=== PATIENT | male | born 1975 | race Caucasian/White ===

== ENCOUNTER 2025-05-18 16:13 | Emergency (ER) | payer BC, SELFPAY ==
--- NOTE | ~2025-05-18 | XR_ITS ---
CLINICAL HISTORY: productive cough 2 view chest x-ray. Comparison: None Findings: Normal lung volumes. Lungs are clear. No pneumothorax or pleural effusion. Heart size normal. No passive venous congestion. No midline shift or tracheal deviation. No acute fracture. Impression: 1. No acute cardiopulmonary disease. This document has been electronically signed by: Amari Felder MD on 05/18/2025 17:26:18
[2025-05-18 16:45] VITALS: BP 149/82; PULSE 85; RESP 18; TEMP 36.9; O2SAT 98; BMI 33.4
--- NOTE | 2025-05-18 16:45 | ED.GENADULT ---
HPI - General Adult General Chief complaint: Weakness Stated complaint: flu like symptoms weakness Time Seen by Provider: 05/18/25 21:07 Source: patient and sign language interpreter Mode of arrival: ambulatory Limitations: language barrier History of Present Illness ED Provider: Dr. Lulu Ornelas HPI narrative: 50 year old male with history of untreated HTN presenting with generlized malaise, fatigue, chills, nonproductive cough, body aches ongoing for the last 2 weeks. States that he feels like he has had the flu. Was never around anyone that has been sick and has never tested positive for influenza though. Denies associated chest pain, abdominal pain, nausea, vomiting, diarrhea, lower extremity edema or pain. Blood pressure is extremely elevated in the emergency department. Patient does not take blood pressure medications daily. Was told at 1 point that he had high blood pressure however, he did not realize he needed to take blood pressure medication every day. Related Data Allergies Allergy/AdvReac Type Severity Reaction Status Date / Time No Known Allergies Allergy Verified 05/18/25 16:47 Review of Systems Review of Systems: As per HPI, full review of systems performed and negative but for the above mentioned pertinent positives and negatives. [facility] Social History Social History Advance Directives: No Advance Directives Information Provided: No Physical Exam ED Exam Exam: GENERAL: Well-Appearing, conversant, no acute distress. SKIN: Normal skin color for ethnicity, warm, dry, no rashes noted. HEENT: Normocephalic, atraumatic, no stridor, posterior oropharynx nonerythematous, dentition intact, EOMI. NECK: Soft, supple, full ROM, midline structures nontender, no step-offs, no deformities, no lymphadenopathy. CHEST: Heart regular rate and rhythm, no murmurs, symmetric chest rise and fall. PULMONARY: Clear to auscultation bilaterally, no labored breathing, no wheezes/rhales/rhonchi. ABDOMINAL: Soft, nondistended, nontender, positive bowel sounds in all quadrants. : Deferred. MUSCULOSKELETAL: Normal tone, full range of motion, no deformities, no peripheral edema. NEURO: Alert and oriented x3, CN II through XII intact, equal strength and sensation bilateral upper and lower extremities, no focal neurologic deficits. PSYCHIATRIC: Normal affect, fluid speech, good eye contact and appropriate demeanor. Vital Signs: Vital Signs - 24 hr 05/18/25 16:45 05/18/25 21:47 05/19/25 01:21 Temperature 98.5 F 98.3 F 98.3 F Pulse Rate 85 68 63 Respiratory Rate 18 Blood Pressure 149/82 H 184/101 H 151/93 H Pulse Oximetry 98 97 98 Oxygen Delivery Method Room Air Room Air Room Air BMI result Body Mass Index 33.4 Course Course Course Narrative: This is a Rapid Medical Examination (RME) performed by Dionicio Patel PA-C in triage. Full HPI, ROS, assessment and treatment plan per primary provider in the Main ED. Hx: 50 yo M here for eval of fatigue, myalgias, chills, productive cough x2 weeks. no N/V. 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 Plan: viral swabs, cxr Medications Administered Discontinued Medications Generic Name Dose Route Start Last Admin Trade Name Freq PRN Reason Stop Dose Admin Nifedipine 30 mg 05/18/25 21:48 05/18/25 23:00 Nifedipine Er 30 Mg Tab.Er.24 PO 05/18/25 21:49 30 mg ONCE ONE Administration Protocol Medical Decision Making Medical Decision Making MDM Narrative: Patient presents today with flu-like symptoms. Differential diagnosis includes influenza, coronavirus, pneumonia, upper respiratory infection, among others. Most importantly, this patient is not in any acute respiratory distress. They have normal oxygen levels at room air. Of note, patient is extremely hypertensive with blood pressures around 180/110. He is supposed to be taking blood pressure medication but did not realize that he should be taking it every day. Patient is staying in [place] but is from [facility] and has not seen a primary care doctor in quite some time. He is supposed to be on blood pressure medication but does not know which 1. Workup thus far has been unremarkable. Slight dehydration however, patient is tolerating oral intake and has had no vomiting in 2 weeks. I am going to add on an EKG, cardiac enzyme and BNP to evaluate for end-organ damage for this elevated blood pressure. He has no chest pain at this time. I have discussed medication and other home therapies that will help the patient and have discussed strict return precautions. Instructed that symptoms may worsen and the patient might need re-evaluation or even hospitalization in the future, but did not show signs of this at the time of discharge. Differential Diagnosis Differential Diagnoses: The differential diagnosis associated with the presentation includes (As above) Admission/Observation Consideration of admission/observation: Escalation of care including admission/observation considered Lab Data MDM Lab Attestation statement: I reviewed the patient's lab results. 05/18/25 17:27 05/18/25 17:27 Labs: Lab Results 05/18/25 05/18/25 Range/Units 17:27 22:14 WBC 7.0 (4.8-10.8) X10*3/uL RBC 4.45 L (4.60-5.80) X10*6/uL Hgb 13.4 L (14.0-18.0) g/dl Hct 38.1 L (42.0-52.0) % MCV 85.6 (80.0-98.0) fL MCH 30.1 (27.0-33.0) pg MCHC 35.2 (31.0-36.0) g/dl RDW 12.5 (11.0-16.0) % Plt Count 188 (160-400) X10*3/uL MPV 10.9 (9.4-12.4) fL Immature Gran % (Auto) 0.3 (0.0-0.4) % Neut % (Auto) 56.5 (45-73) % Lymph % (Auto) 32.1 (20-40) % [place] % (Auto) 4.6 (2-11) % Eos % (Auto) 5.8 H (0-4) % Baso % (Auto) 0.7 (0-2) % Lymph # (Auto) 2.2 (1.2-4.9) X10*3/uL [place] # (Auto) 0.3 (0.1-1.2) X10*3/uL Eos # (Auto) 0.4 (0.0-0.4) X10*3/uL Baso # (Auto) 0.1 (0.0-0.2) X10*3/uL Abs Immat Gran (auto) 0.02 (0.00-0.03) X10*3/uL Absolute Neuts (auto) 3.9 (2.0-8.3) x10*3/uL Absolute Nucleated RBC 0.000 (0.0-0.012) X10*3/uL Nucleated RBC % (auto) 0.0 (0.0-0.2) /100WBC Sodium 142 (135-145) mmol/L Potassium 4.1 (3.3-5.1) mmol/L Chloride 108 (96-108) mmol/L Carbon Dioxide 27 (22-29) mmol/L Anion Gap 11 L (12-20) BUN 20 H (9-16) mg/dL Creatinine 0.89 (0.5-1.4) mg/dL Estim Creat Clear Calc 93.0 Estimated GFR > 60 Random Glucose 103 (60-115) mg/dL Calcium 8.5 (8.4-10.2) mg/dL Magnesium 2.1 (1.6-2.6) mg/dL Total Bilirubin 0.3 (0.0-1.0) mg/dL AST 19 (5-37) U/L ALT 16 (0-40) U/L Alkaline Phosphatase 77 (39-117) U/L Total Creatine Kinase 112 (38-174) U/L Troponin I High Sens < 2.7 (<3.5-35.0) ng/L B-Natriuretic Peptide 19 (<100) pg/mL Total Protein 6.8 (6.5-8.0) g/dL Albumin 4.0 (3.5-5.0) g/dL COVID-19 (TRINO) Negative (Negative) COVID-19 Clin Com See Note Influenza Type A (SHENA) Negative (Negative) Influenza Type B (SHENA) Negative (Negative) Influenza A & B Note See Note Independent Interpretation I performed an independent interpretation of an: EKG and Plain X-Ray Interpretation: My independent interpretation of the chest x-ray reveals no consolidations, pulmonary edema, pleural effusion, pneumothorax, obvious bony abnormalities. Radiology Impression Discussion of test interpretation with radiology: I have reviewed the radiologist's reading. Chronic Conditions Patient?s care impacted by: Hypertension Discharge Plan Discharge Clinical Impression: Acute viral syndrome, Poorly-controlled hypertension Patient Disposition: Home, Self-Care Instructions: Hypertension (ED), Viral Syndrome (ED) Additional Instructions: Take your blood pressure medications as prescribed by your primary care doctor when you get home. Take these every day and not stopped taking them unless your blood pressure is low (less than 120/80). Return to the emergency room with any new or worsening symptoms including: Chest pain, difficulty breathing, abdominal pain, vomiting, inability to tolerate food or drink, any new symptom that concerns you. Try to drink plenty of fluids over the next several days. Use Tylenol or Motrin for fever. [place] fabiola medicamentos para la presi?n arterial seg?n lo prescrito por coffey m?dico de cabecera cuando llegue a casa. T?melos todos los d?as y no deje de tomarlos a menos que coffey presi?n arterial sea baja (menos de 120/80). Vuelva a la kiki de urgencias si presenta alg?n s?ntoma nuevo o si los s?ntomas empeoran, incluyendo: dolor en el pecho, dificultad para respirar, dolor abdominal, v?mitos, intolerancia a alimentos o bebidas, cualquier s?ntoma nuevo que le preocupe. Intente beber mucho l?quido aleyda los pr?ximos d?as. [place] Tylenol o Motrin para la fiebre. Print Language: [place]
[2025-05-18 17:32] LABS: MANUAL DIFF FLAG NO
[2025-05-18 17:33] LABS: Hematocrit 38.1 % (42.0-52.0); Hemoglobin 13.4 g/dl (14.0-18.0); Imm Gran Abs Auto 0.02 X10*3/uL (0.00-0.03); Imm Gran Pct Auto 0.3 % (0.0-0.4); Lymphocytes Absolute Auto 2.2 X10*3/uL (1.2-4.9); Mean Corpuscular HGB Conc 35.2 g/dl (31.0-36.0); Mean Corpuscular Hemoglobin 30.1 pg (27.0-33.0); Mean Corpuscular Volume 85.6 fL (80.0-98.0); NRBC Abs Auto 0.000 X10*3/uL (0.0-0.012); NRBC Pct Auto 0.0 /100WBC (0.0-0.2); Platelet Count 188 X10*3/uL (160-400); Red Blood Count 4.45 X10*6/uL (4.60-5.80); White Blood Count 7.0 X10*3/uL (4.8-10.8)
[2025-05-18 17:49] LABS: COVID-19 Test Negative (Negative); IDNOW Serial# 58CA691E
[2025-05-18 17:50] LABS: Alanine Aminotransferase 16 U/L (0-40); Albumin Level 4.0 g/dL (3.5-5.0); Alkaline Phosphatase 77 U/L (39-117); Anion Gap 11 (12-20); Aspartate Amino Transferase 19 U/L (5-37); Blood Urea Nitrogen 20 mg/dL (9-16); Calcium 8.5 mg/dL (8.4-10.2); Carbon Dioxide 27 mmol/L (22-29); Chloride 108 mmol/L (96-108); Creatinine Clr Calc Pharmacy 93.0; Estimated Glomerular Filt Rate > 60; IDNOW Serial# 55D5AD1C; Influenza B2 Negative (Negative); Magnesium 2.1 mg/dL (1.6-2.6); Potassium 4.1 mmol/L (3.3-5.1); Sodium 142 mmol/L (135-145); Total Protein 6.8 g/dL (6.5-8.0)
--- OUTSIDE RECORDS SUMMARY | 2025-05-18 19:52 | XMS_ITS ---
Author Name [facility] Organization Unknown Results Test Name/Text Value Interpretation Date Range Source SARS-CoV-2 RNA Resp Ql TRINO+non-probe No RNA Detected 5 [facility] Glucose SerPl-mCnc 109.0 mg/dL Above high normal 04/18 5 71 - 99 [facility] Calcium SerPl-mCnc 8.9 mg/dL 5 8.4 - 10.5 [facility] Bilirub SerPl-mCnc 0.6 mg/dL 5 0 - 1.2 [facility] BUN/Creat SerPl 31.0 5 [facility] Anion Gap SerPl-sCnc 11.0 mmol/L 02 5 7 - 16 [facility] Prot SerPl-mCnc 7.0 g/dL 5 6 - 8.2 [facility] Sodium SerPl-sCnc 136.0 mmol/L 5 135 - 148 [facility] AST/ALT SerPl-cRto 1.5 5 [facility] CO2 SerPl-sCnc 24.0 mmol/L 5 21 - 31 [facility] ALT SerPl w/o P-5'-P-cCnc 19.0 U/L 5 - [facility] Chloride SerPl-sCnc 101.0 mmol/L 05/01/20 2 5 96 - 109 [facility] Creat SerPl-mCnc 0.87 mg/dL 5 0.6 - 1.3 [facility] Potassium SerPl-sCnc 4.0 mmol/L 02 5 3.5 - 5.1 [facility] AST SerPl-cCnc 28.0 U/L 5 - 37 [facility] ALP SerPl-cCnc 88.0 U/L 5 30 - 120 [facility] BUN SerPl-mCnc 27.0 mg/dL Above high normal 05/01/20 2 5 7 - 22 [facility] eGFRcr SerPlBld CKD-EPI 2020 105.0 mL/min/1.73 sqm 5 60 - [facility] Albumin SerPl BCG-mCnc 4.4 g/dL 05/01 5 3.5 - 5.3 [facility] CK SerPl-cCnc 546.0 U/L Above high normal 5 24 - 195 [facility] Basophils/leuk NFr Bld Auto 0.5 % 5 0 - 2 [facility] PMV Bld Auto 11.4 fL 5 9.2 - 12.7 [facility] MCHC RBC Auto-mCnc 34.5 g/dL 5 31 - 37 [facility] Monocytes # Bld Auto 0.53 K/cu mm 02 5 0.1 - 1.2 [facility] WBC nRBC cor # Bld Auto 7.64 K/cu mm 5 4.5 - 11 [facility] nRBC/100 WBC Bld Manual-Rto 0.0 K/cu mm 5 0 - 0.01 [facility] Neutrophils # Bld Auto 5.28 K/cu mm 05/01 5 1.5 - 7.8 [facility] Imm Granulocytes # Bld Auto 0.02 K/cu mm 5 0 - 0.05 [facility] Eosinophil/leuk NFr Bld Auto 0.9 % Below low normal 5 1 - 4 [facility] Platelet # Bld Auto 176.0 K/cu mm 02 5 150 - 350 [facility] Hgb Bld-mCnc 13.7 g/dL Below low normal 5 13.9 - 16.3 [facility] Lymphocytes # Bld Auto 1.7 K/cu mm 05/01 5 1.1 - 4.8 [facility] Monocytes/leuk NFr Bld Auto 6.9 % 5 2 - 11 [facility] Lymphocytes/leuk NFr Bld Auto 22.3 % Below low normal 5 24 - 44 [facility] RDW RBC Auto-Rto 12.3 % 5 11.5 - 14.5 [facility] MCH RBC Qn Auto 29.7 pg 5 26 - 34 [facility] Neutrophils/leuk NFr Bld Auto 69.1 % 5 40 - 70 [facility] Imm Granulocytes/leuk NFr Bld Auto 0.3 % 5 0 - 1 [facility] RBC # Bld Auto 4.62 M/cu mm 5 4.5 - 5.9 [facility] MCV RBC Auto 85.9 fL 5 80 - 100 [facility] Eosinophil # Bld Auto 0.07 K/cu mm Below low normal 5 0.12 - 0.3 [facility] Hct VFr Bld Auto 39.7 % Below low normal 02 5 41 - 53 [facility] rRNA Spec Ql TRINO+probe Negative 5 - [facility] T vaginalis rRNA Spec Ql TRINO+probe Negative 5 - [facility] N gonorrhoea rRNA Spec Ql TRINO+probe Negative 5 - [facility] Trichomonas vaginalis rRNA Negative 5 - [facility] Neisseria gonorrhoeae rRNA Negative 5 - [facility] Chlamydia trachomatis rRNA Negative 5 - [facility] POC LEUKOCYTE ESTERASE, URINE Negative 5 - [facility] POC NITRITE, URINE Negative 5 - [facility] POC GLUCOSE, URINE Negative [address] [facility] POC UROBILINOGEN, URINE 0.2 5 0.2 - [address] [facility] POC PH, URINE 6.0 5 4.6 - [address] [facility] POC KETONE, URINE Negative [address] [facility] POC INTERNAL QC Pass [address] [facility] POC BLOOD, URINE Negative [address] [facility] POC SPECIFIC GRAVITY, URINE 1.[address] [facility] POC BILIRUBIN, URINE Negative [address] [facility] POC PROTEIN, URINE Negative 5 - [facility] POC COLOR, URINE Yellow [address] [facility] POC APPEARANCE, URINE Clear [address] [facility] LAB CHEM DELTA HS-TROP-I ([facility]) 1-3 HR 2.0 ng/L Normal 4 - [facility] CHEM DELTA [facility]-TROP-I ([facility]) 0-3 HR 2.0 ng/L Normal 4 - [facility] Troponin I SerPl HS-mCnc 12.0 ng/L Normal 4 - 79 [facility] LAB CHEM DELTA HS-TROP-I ([facility]) 0-1 HR Normal 4 [facility] Troponin I SerPl HS-mCnc <10.0 ng/L Normal 4 - 79 [facility] fentaNYL Ur Ql Scn Not Detected Normal [facility] Ben[facility] metab Ur Ql Scn Not Detected Normal 4 [facility] Opiates Ur Ql Scn Not Detected Normal 4 [facility] Cannabinoids Ur Scn-mCnc Not Detected Normal 4 [facility] Cocaine+BZE Ur Ql Scn Unconfirmed Positive Screen Normal 4 [facility] Methadone Ur Ql Scn Not Detected Normal 09/17/20 2 4 [facility] Amphetamines Ur Ql Scn Not Detected Normal 09/17 4 [facility] Barbiturates Ur Ql Scn>200 ng/mL Not Detected Normal 4 [facility] TSH SerPl-aCnc 0.97 mcIU/mL Normal 4 0.36 - 3.74 [facility] Monocytes/leuk NFr Bld Auto 6.8 % Normal 4 2 - 11 [facility] Lymphocytes # Bld Auto 1.56 K/cu mm Normal 09/17 4 1.1 - 4.8 [facility] Platelet # Bld Auto 206.0 K/cu mm Normal 02 4 150 - 350 [facility] MCHC RBC Auto-mCnc 34.6 g/dL Normal 4 31 - 37 [facility] Hgb Bld-mCnc 15.0 g/dL Normal 4 13.9 - 16.3 [facility] RBC # Bld Auto 5.0 M/cu mm Normal 4 4.5 - 5.9 [facility] Monocytes # Bld Auto 0.67 K/cu mm Normal 02 4 0.1 - 1.2 [facility] Neutrophils # Bld Auto 7.41 K/cu mm Normal 09/17 4 1.5 - 7.8 [facility] Eosinophil/leuk NFr Bld Auto 1.3 % Normal 4 1 - 4 [facility] Hct VFr Bld Auto 43.4 % Normal 4 41 - 53 [facility] MCH RBC Qn Auto 30.0 pg Normal 4 26 - 34 [facility] Eosinophil # Bld Auto 0.13 K/cu mm Normal 4 0.12 - 0.3 [facility] Imm Granulocytes/leuk NFr Bld Auto 0.2 % Normal 4 0 - 1 [facility] PMV Bld Auto 11.8 fL Normal 4 9.2 - 12.7 [facility] MCV RBC Auto 86.8 fL Normal 4 80 - 100 [facility] WBC nRBC cor # Bld Auto 9.84 K/cu mm Normal 4 4.5 - 11 [facility] Lymphocytes/leuk NFr Bld Auto 15.9 % Below low normal 4 24 - 44 [facility] RDW RBC Auto-Rto 12.1 % Normal 4 11.5 - 14.5 [facility] Neutrophils/leuk NFr Bld Auto 75.3 % Above high normal 4 40 - 70 [facility] Basophils/leuk NFr Bld Auto 0.5 % Normal 4 0 - 2 [facility] Imm Granulocytes # Bld Auto 0.02 K/cu mm Normal 4 0 - 0.05 [facility] nRBC/100 WBC Bld Manual-Rto 0.0 K/cu mm Normal 4 0 - 0.01 [facility] Ethanol SerPl-mCnc <3.0 mg/dL Normal 4 - [facility] CO2 SerPl-sCnc 27.0 mmol/L Normal 4 21 - 32 [facility] ALT SerPl w/o P-5'-P-cCnc 21.0 U/L Normal 4 6 - 65 [facility] Glucose SerPl-mCnc 94.0 mg/dL Normal 4 71 - 99 [facility] Anion Gap SerPl-sCnc 5.0 mmol/L Below low normal 4 7 - 16 [facility] Potassium SerPl-sCnc 3.7 mmol/L Normal 02 4 3.5 - 5.1 [facility] BUN/Creat SerPl 16.0 Normal 4 [facility] Bilirub SerPl-mCnc 0.6 mg/dL Normal 4 0.2 - 1.2 [facility] Sodium SerPl-sCnc 138.0 mmol/L Normal 4 136 - 145 [facility] Prot SerPl-mCnc 7.9 g/dL Normal 4 6.4 - 8.2 [facility] BUN SerPl-mCnc 14.0 mg/dL Normal 4 7 - 18 [facility] Chloride SerPl-sCnc 106.0 mmol/L Normal 09/17/20 2 4 98 - 107 [facility] AST/ALT SerPl-cRto 0.6 Normal 4 [facility] Calcium SerPl-mCnc 9.7 mg/dL Normal 4 8.5 - 10.1 [facility] AST SerPl-cCnc 12.0 U/L Normal 4 3 - 37 [facility] Albumin SerPl BCG-mCnc 4.0 g/dL Normal 09/17 4 3.5 - 5 [facility] ALP SerPl-cCnc 95.0 U/L Normal 4 45 - 117 [facility] Creat SerPl-mCnc 0.86 mg/dL Normal 4 0.6 - 1.3 [facility] eGFRcr SerPlBld CKD-EPI 2020 105.0 mL/min/1.73 sqm Normal 4 60 - [facility] Troponin I SerPl HS-mCnc <10.0 ng/L Normal 4 - 79 [facility] Gamma interferon background Bld IA-aCnc 1.05 IU/mL Normal [address] [facility] Mitogen IGNF bckgrd cor Bld-aCnc >10.[address] [facility] M TB IFN-g CD4+CD8+ bckgrnd cor Bld-aCnc 0.22 IU/mL Normal [address] [facility] M TB IFN-g CD4+ bckgrnd cor Bld-aCnc 0.74 IU/mL Normal 4 [facility] TB IFN-g Bld-Imp Negative Normal 4 - [facility] QUANTIFERON INCUBATION Incubation performed. Normal 4 [facility] Service Cmnt-Imp Comment Normal 4 [facility] Hemoglobin A1c/Hemoglobin.total 5.6 % Normal 4 4.8 - 5.6 [facility] Mycobacterium tuberculosis stimulated gamma interf Negative Normal 4 - [facility] QuantiFERON Incubation Incubation performed. Normal 4 [facility] Triglyceride 56.0 mg/dL Normal 4 0 - 149 [facility] Cholesterol.in HDL 62.0 mg/dL Normal 4 39 - [facility] Cholesterol.in LDL 112.0 mg/dL Above high normal 06/20 4 0 - 99 [facility] Cholesterol.in VLDL 11.0 mg/dL Normal 07/17/20 2 4 5 - 40 [facility] Cholesterol 185.0 mg/dL Normal 4 100 - 199 [facility] Platelets 187.0 x10E3/uL Normal 4 150 - 450 [facility] Neutrophils/100 leukocytes 56.0 % Normal 4 - [facility] Lymphocytes/100 leukocytes 34.0 % Normal 4 - [facility] Erythrocyte distribution width 12.8 % Normal 4 11.6 - 15.4 [facility] Basophils 0.0 x10E3/uL Normal 4 0 - 0.2 [facility] Erythrocyte mean corpuscular hemoglobin 30.2 pg Normal 4 26.6 - 33 [facility] Erythrocyte mean corpuscular hemoglobin concentrat 33.5 g/dL Normal 4 31.5 - 35.7 [facility] Monocytes 0.4 x10E3/uL Normal 4 0.1 - 0.9 [facility] Basophils/100 leukocytes 1.0 % Normal 4 - [facility] Granulocytes.immature/ 100 leukocytes 0.0 % Normal 4 - [facility] Granulocytes.immature 0.0 x10E3/uL Normal 4 0 - 0.1 [facility] Neutrophils 3.6 x10E3/uL Normal 4 1.4 - 7 [facility] Leukocytes 6.4 x10E3/uL Normal 4 3.4 - 10.8 [facility] Erythrocyte mean corpuscular volume 90.0 fL Normal 4 79 - 97 [facility] Erythrocytes 4.84 x10E6/uL Normal 4 4.14 - 5.8 [facility] Monocytes/100 leukocytes 6.0 % Normal 4 - [facility] Lymphocytes 2.2 x10E3/uL Normal 4 0.7 - 3.1 [facility] Hematocrit 43.6 % Normal 4 37.5 - 51 [facility] Hemoglobin 14.6 g/dL Normal 4 13 - 17.7 [facility] Eosinophils 0.2 x10E3/uL Normal 4 0 - 0.4 [facility] Eosinophils/100 leukocytes 3.0 % Normal 4 - [facility] Aspartate aminotransferase 17.0 IU/L Normal 4 0 - 40 [facility] Creatinine 0.77 mg/dL Normal 4 0.76 - 1.27 [facility] Glucose 91.0 mg/dL Normal 4 70 - 99 [facility] Globulin 2.5 g/dL Normal 4 1.5 - 4.5 [facility] Alanine aminotransferase 15.0 IU/L Normal 4 0 - 44 [facility] Carbon dioxide 22.0 mmol/L Normal 4 20 - 29 [facility] Glomerular filtration rate/1.73 sq M.predicted 109.0 mL/min/1.73 Normal 4 59 - [facility] Urea nitrogen/Creatinine 22.0 Above high normal 4 9 - 20 [facility] Calcium 9.2 mg/dL Normal 4 8.7 - 10.2 [facility] Protein 6.8 g/dL Normal 4 6 - 8.5 [facility] Alkaline phosphatase 86.0 IU/L Normal 02 4 44 - 121 [facility] Bilirubin 0.3 mg/dL Normal 4 0 - 1.2 [facility] Potassium 4.5 mmol/L Normal 4 3.5 - 5.2 [facility] Albumin 4.3 g/dL Normal 4 4.1 - 5.1 [facility] Sodium 140.0 mmol/L Normal 4 134 - 144 [facility] Chloride 103.0 mmol/L Normal 4 96 - 106 [facility] Urea nitrogen 17.0 mg/dL Normal 4 6 - 24 [facility] Prostate specific Ag.free/Prostate specific Ag.tot 19.3 % Normal 4 [facility] Prostate specific Ag 1.5 ng/mL Normal 02 4 0 - 4 [facility] Prostate specific Ag.free 0.29 ng/mL Normal 4 - [facility] LDLc SerPl Calc-mCnc 112.0 mg/dL Above high normal 4 0 - [address] [facility] Trigl SerPl-mCnc 56.0 mg/dL Normal 4 0 - [address] [facility] VLDLc SerPl Calc-mCnc 11.0 mg/dL Normal 4 5 - [address] [facility] Cholest SerPl-mCnc 185.0 mg/dL Normal 4 100 - [address] [facility] HDLc SerPl-mCnc 62.0 mg/dL Normal 4 39 - [facility] PSA SerPl-mCnc 1.5 ng/mL Normal 4 0 - [address] [facility] PSA Free MFr SerPl 19.3 % Normal [address] [facility] PSA Free SerPl-mCnc 0.29 ng/mL Normal 07/16/20 2 4 - [facility] Glucose SerPl-mCnc 91.0 mg/dL Normal 4 70 - [address] [facility] eGFRcr SerPlBld CKD-EPI 2020 109.0 mL/min/1.73 Normal 4 59 - [facility] CO2 SerPl-sCnc 22.0 mmol/L Normal 4 20 - [address] [facility] Potassium SerPl-sCnc 4.5 mmol/L Normal 02 4 3.5 - 5.[address] [facility] AST SerPl-cCnc 17.0 IU/L Normal 4 0 - [address] [facility] Bilirub SerPl-mCnc 0.3 mg/dL Normal 4 0 - 1.[address] [facility] Prot SerPl-mCnc 6.8 g/dL Normal 4 6 - 8.[address] [facility] ALP SerPl-cCnc 86.0 IU/L Normal 4 44 - [address] [facility] BUN SerPl-mCnc 17.0 mg/dL Normal 4 6 - [address] [facility] Creat SerPl-mCnc 0.77 mg/dL Normal 4 0.76 - 1.[address] [facility] Calcium SerPl-mCnc 9.2 mg/dL Normal 4 8.7 - 10.[address] [facility] Globulin Ser Calc-mCnc 2.5 g/dL Normal 07/16 4 1.5 - 4.[address] [facility] BUN/Creat SerPl 22.0 Above high normal 02 4 9 - [address] [facility] ALT SerPl-cCnc 15.0 IU/L Normal 4 0 - [address] [facility] Albumin SerPl-mCnc 4.3 g/dL Normal 4 4.1 - 5.[address] [facility] Chloride SerPl-sCnc 103.0 mmol/L Normal 07/16/20 2 4 96 - [address] [facility] Sodium SerPl-sCnc 140.0 mmol/L Normal 4 134 - [address] [facility] Eosinophil/leuk NFr Bld Auto 3.0 % Normal 4 - [facility] RBC # Bld Auto 4.84 x10E6/uL Normal 4 4.14 - 5.[address] [facility] Platelet # Bld Auto 187.0 x10E3/uL Normal 4 150 - [address] [facility] Monocytes/leuk NFr Bld Auto 6.0 % Normal 4 - [facility] Basophils # Bld Auto 0.0 x10E3/uL Normal 02 4 0 - 0.[address] [facility] Neutrophils # Bld Auto 3.6 x10E3/uL Normal 07/16 4 1.4 - 7 [facility] Basophils/leuk NFr Bld Auto 1.0 % Normal 4 - [facility] Hct VFr Bld Auto 43.6 % Normal 4 37.5 - 51 [facility] Lymphocytes # Bld Auto 2.2 x10E3/uL Normal 07/16 4 0.7 - 3.1 [facility] Neutrophils/leuk NFr Bld Auto 56.0 % Normal 4 - [facility] WBC # Bld Auto 6.4 x10E3/uL Normal 4 3.4 - 10.8 [facility] MCV RBC Auto 90.0 fL Normal 4 79 - 97 [facility] RBC Qn Auto 30.2 pg Normal 4 26.6 - 33 [facility] MCHC RBC Auto-mCnc 33.5 g/dL Normal 4 31.5 - 35.7 [facility] RDW RBC Auto-Rto 12.8 % Normal 4 11.6 - 15.4 [facility] Imm Granulocytes/leuk NFr Bld Auto 0.0 % Normal 4 - [facility] Lymphocytes/leuk NFr Bld Auto 34.0 % Normal 4 - [facility] Imm Granulocytes # Bld Auto 0.0 x10E3/uL Normal 4 0 - 0.1 [facility] Eosinophil # Bld Auto 0.2 x10E3/uL Normal 4 0 - 0.4 [facility] Monocytes # Bld Auto 0.4 x10E3/uL Normal 02 4 0.1 - 0.9 [facility] Hgb Bld-mCnc 14.6 g/dL Normal 4 13 - 17.7 [facility] HbA1c MFr Bld 5.6 % Normal 4 4.8 - 5.6 [facility] Color Ur Yellow Normal 4 - [facility] Prot Ur Ql Strip Negative Normal 4 - [facility] Nitrite Ur Ql Strip Negative Normal 06/06/20 2 4 - [facility] Appearance Ur Clear Normal 4 - [facility] Ketones Ur Ql Strip Negative Normal 06/06/20 2 4 - [facility] Hgb Ur Ql Strip Negative Normal 4 - [facility] Micro UrnS Comment Normal 4 [facility] Glucose Ur Ql Strip Negative Normal 06/06/20 2 4 - [facility] pH Ur Strip 5.5 Normal 4 5 - 7.5 [facility] Sp Gr Ur Strip 1.027 Normal 4 1.005 - 1.03 [facility] Urobilinogen Ur Strip-mCnc 0.2 mg/dL Normal 4 0.2 - 1 [facility] Leukocyte esterase Ur Ql Strip Negative Normal 4 - [facility] Bilirub Ur Ql Strip Negative Normal 06/06/20 2 4 - [facility] Observation MICNIP Normal 4 [facility] Nitrite Negative Normal 4 - [facility] Protein Negative Normal 4 - [facility] Appearance Clear Normal 4 - [facility] Urobilinogen 0.2 mg/dL Normal 4 0.2 - 1 [facility] Ketones Negative Normal 4 - [facility] Specific gravity 1.027 Normal 4 1.005 - 1.03 [facility] Leukocyte esterase Negative Normal 4 - [facility] Hemoglobin Negative Normal 4 - [facility] pH 5.5 Normal 4 5 - 7.5 [facility] Glucose Negative Normal 4 - [facility] Bilirubin Negative Normal 4 - [facility] Color Yellow Normal 4 - [facility] POC LEUKOCYTE ESTERASE, URINE Negative Normal 4 - [facility] POC GLUCOSE, URINE Negative Normal 4 - [facility] POC BLOOD, URINE Negative Normal 4 - [facility] POC NITRITE, URINE Negative Normal 4 - [facility] POC COLOR, URINE Yellow Normal [address] [facility] POC PROTEIN, URINE Negative Normal 4 - [facility] POC BILIRUBIN, URINE Negative Normal 02 4 - [facility] POC KETONE, URINE Negative Normal 4 - [facility] POC UROBILINOGEN, URINE 0.2 Normal 4 0.2 - [address] [facility] POC APPEARANCE, URINE Clear Normal [address] [facility] POC PH, URINE 6.0 Normal 4 4.6 - [address] [facility] POC SPECIFIC GRAVITY, URINE >=1.030 Normal 4 1.001 - 1.[address] [facility] POC QC PERFORMED? Yes Normal [address] [facility] POC GLUCOSE, FINGERSTICK 98.0 MG/DL Normal 4 71 - [address] [facility] C trach DNA Ur Ql TRINO+probe No DNA Detected Normal 4 - [facility] gon[facility] DNA Ur Ql TRINO+probe No DNA Detected Normal 4 - [facility] Select one of the following tests (click on magnifying glass for more options): Chlamydia and N. gonorrhoeae Normal 4 [facility] Anion Gap SerPl-sCnc 2.0 mmol/L Below low normal 4 7 - 16 [facility] Chloride SerPl-sCnc 111.0 mmol/L Above high normal 4 98 - 107 [facility] AST SerPl-cCnc 21.0 U/L Normal 4 3 - 37 [facility] Creat SerPl-mCnc 1.1 mg/dL Normal 4 0.6 - 1.3 [facility] Sodium SerPl-sCnc 142.0 mmol/L Normal 4 136 - 145 [facility] BUN SerPl-mCnc 26.0 mg/dL Above high normal 01/20/20 2 4 7 - 18 [facility] Calcium SerPl-mCnc 8.8 mg/dL Normal 4 8.5 - 10.1 [facility] Potassium SerPl-sCnc 4.4 mmol/L Normal 02 4 3.5 - 5.1 [facility] ALT SerPl w/o P-5'-P-cCnc 26.0 U/L Normal 4 6 - 65 [facility] Glucose SerPl-mCnc 112.0 mg/dL Above high normal 4 71 - 99 [facility] ALP SerPl-cCnc 79.0 U/L Normal 4 45 - 117 [facility] CO2 SerPl-sCnc 29.0 mmol/L Normal 4 21 - 32 [facility] Prot SerPl-mCnc 6.7 g/dL Normal 4 6.4 - 8.2 [facility] AST/ALT SerPl-cRto 0.8 Normal 4 [facility] GFR/BSA.pred SerPlBld MMB-MCK-PpEPwv 82.0 mL/min/1.73 sqm Normal 4 60 - [facility] BUN/Creat SerPl 24.0 Normal 4 [facility] Bilirub SerPl-mCnc 0.4 mg/dL Normal 4 0.2 - 1.2 [facility] Albumin SerPl BCG-mCnc 3.9 g/dL Normal 01/19 4 3.5 - 5 [facility] RBC # Ur Auto 8.0 /mcL Normal 4 0 - 27 [facility] Prot Ur Ql Strip.auto 1+ Abnormal 4 - [facility] WBC #/area UrnS Auto <0.0 /HPF Normal 02 4 - [facility] Squamous #/area UrnS Auto 0.0 /HPF Normal 4 [facility] Appearance Ur Clear Normal 4 [facility] Hyaline Casts #/area UrnS Auto 0.0 /LPF Normal 4 0 - 3 [facility] Color Ur Yellow Normal 4 [facility] Bacteria #/area UrnS Auto None Seen Normal 4 - [facility] Leukocyte esterase Ur Ql Strip.auto Negative Normal 4 - [facility] pH Ur Strip.auto 8.0 Normal 4 4.6 - 8 [facility] Hgb Ur Ql Strip.auto Negative Normal 02 4 - [facility] Sp Gr Ur Refractometry 1.037 Above high normal 4 1.003 - 1.03 [facility] Bilirub Ur Ql Strip.auto Negative Normal 4 - [facility] Ketones Ur Ql Strip.auto Trace Normal 4 - [facility] Glucose Ur Strip.auto-mCnc Negative Normal 4 - [facility] Nitrite Ur Ql Strip.auto Negative Normal 4 - [facility] RBC #/area UrnS Auto 1.0 /HPF Normal 02 4 - [facility] Urobilinogen Ur Strip.auto-mCnc 1.0 mg/dL Normal 4 - [facility] WBC # Ur Auto <2.0 /mcL Normal 4 0 - 27 [facility] Imm Granulocytes # Bld Auto 0.01 K/cu mm Normal 4 0 - 0.05 [facility] Basophils/leuk NFr Bld Auto 0.9 % Normal 4 0 - 2 [facility] Neutrophils # Bld Auto 3.95 K/cu mm Normal 01/19 4 1.5 - 7.8 [facility] Hct VFr Bld Auto 38.1 % Below low normal 02 4 41 - 53 [facility] MCV RBC Auto 86.6 fL Normal 4 80 - 100 [facility] Platelet # Bld Auto 159.0 K/cu mm Normal 02 4 150 - 350 [facility] Eosinophil/leuk NFr Bld Auto 4.4 % Above high normal 4 1 - 4 [facility] MCH RBC Qn Auto 30.2 pg Normal 4 26 - 34 [facility] Neutrophils/leuk NFr Bld Auto 53.0 % Normal 4 40 - 70 [facility] Monocytes # Bld Auto 0.57 K/cu mm Normal 02 4 0.1 - 1.2 [facility] MCHC RBC Auto-mCnc 34.9 g/dL Normal 4 31 - 37 [facility] WBC nRBC cor # Bld Auto 7.47 K/cu mm Normal 4 4.5 - 11 [facility] Lymphocytes/leuk NFr Bld Auto 34.0 % Normal 4 24 - 44 [facility] Lymphocytes # Bld Auto 2.54 K/cu mm Normal 01/19 4 1.1 - 4.8 [facility] Hgb Bld-mCnc 13.3 g/dL Below low normal 4 13.9 - 16.3 [facility] Eosinophil # Bld Auto 0.33 K/cu mm Above high normal 0 4 0.12 - 0.3 [facility] PMV Bld Auto 12.3 fL Normal 4 9.2 - 12.7 [facility] RDW RBC Auto-Rto 12.2 % Normal 4 11.5 - 14.5 [facility] RBC # Bld Auto 4.4 M/cu mm Below low normal 4 4.5 - 5.9 [facility] Imm Granulocytes/leuk NFr Bld Auto 0.1 % Normal 4 0 - 1 [facility] Monocytes/leuk NFr Bld Auto 7.6 % Normal 4 2 - 11 [facility] n[facility]BC/100 WBC Bld Manual-Rto 0.0 K/cu mm Normal 4 0 - 0.01 [facility] Thyrotropin 2.01 uIU/mL Normal 4 0.45 - 4.5 [facility] Hemoglobin A1c/Hemoglobin.total 5.6 % Normal 4 4.8 - 5.6 [facility] Urea nitrogen/Creatinine 17.0 Normal 4 9 - 20 [facility] Glucose 75.0 mg/dL Normal 4 70 - 99 [facility] Aspartate aminotransferase 17.0 IU/L Normal 4 0 - 40 [facility] Glomerular filtration rate/1.73 sq M.predicted 105.0 mL/min/1.73 Normal 4 59 - [facility] Creatinine 0.9 mg/dL Normal 4 0.76 - 1.27 [facility] Bilirubin <0.2 Normal 4 0 - 1.2 [facility] Carbon dioxide 22.0 mmol/L Normal 4 20 - 29 [facility] Alkaline phosphatase 89.0 IU/L Normal 02 4 44 - 121 [facility] Alanine aminotransferase 17.0 IU/L Normal 4 0 - 44 [facility] Protein 7.2 g/dL Normal 4 6 - 8.5 [facility] Globulin 2.8 g/dL Normal 4 1.5 - 4.5 [facility] Albumin/Globulin 1.6 Normal 4 1.2 - 2.2 [facility] Albumin 4.4 g/dL Normal 4 4.1 - 5.1 [facility] Urea nitrogen 15.0 mg/dL Normal 4 6 - 24 [facility] Calcium 9.4 mg/dL Normal 4 8.7 - 10.2 [facility] Sodium 141.0 mmol/L Normal 4 134 - 144 [facility] Potassium 4.1 mmol/L Normal 4 3.5 - 5.2 [facility] Chloride 103.0 mmol/L Normal 4 96 - 106 [facility] HbA1c MFr Bld 5.6 % Normal 4 4.8 - 5.6 [facility] TSH SerPl DL<=0.005 mIU/L-aCnc 2.01 uIU/mL Normal 4 0.45 - 4.5 [facility] Triglyceride 135.0 mg/dL Normal 4 0 - 149 [facility] Cholesterol.in LDL 119.0 mg/dL Above high normal 4 0 - 99 [facility] Cholesterol.in VLDL 24.0 mg/dL Normal 10/25/19 2 4 5 - 40 [facility] Cholesterol 201.0 mg/dL Above high normal 4 100 - 199 [facility] Cholesterol.in HDL 58.0 mg/dL Normal 4 39 - [facility] Glucose SerPl-mCnc 75.0 mg/dL Normal 4 70 - [address] [facility] Prot SerPl-mCnc 7.2 g/dL Normal 4 6 - 8.[address] [facility] Albumin SerPl-mCnc 4.4 g/dL Normal 4 4.1 - 5.[address] [facility] Sodium SerPl-sCnc 141.0 mmol/L Normal 4 134 - [address] [facility] Potassium SerPl-sCnc 4.1 mmol/L Normal 02 4 3.5 - 5.[address] [facility] Bilirub SerPl-mCnc <0.2 Normal 4 0 - 1.[address] [facility] Globulin Ser Calc-mCnc 2.8 g/dL Normal 10/24 4 1.5 - 4.[address] [facility] Calcium SerPl-mCnc 9.4 mg/dL Normal 4 8.7 - 10.[address] [facility] Creat SerPl-mCnc 0.9 mg/dL Normal 4 0.76 - 1.27 [facility] Chloride SerPl-sCnc 103.0 mmol/L Normal 10/24/19 2 4 96 - [address] [facility] BUN/Creat SerPl 17.0 Normal 4 9 - [address] [facility] BUN SerPl-mCnc 15.0 mg/dL Normal 4 6 - [address] [facility] AST SerPl-cCnc 17.0 IU/L Normal 4 0 - 40 [facility] ALP SerPl-cCnc 89.0 IU/L Normal 4 44 - [address] [facility] eGFRcr SerPlBld CKD-EPI 2020 105.0 mL/min/1.73 Normal 4 59 - [facility] Albumin/Glob SerPl 1.6 Normal 4 1.2 - 2.[address] [facility] ALT SerPl-cCnc 17.0 IU/L Normal 4 0 - [address] [facility] CO2 SerPl-sCnc 22.0 mmol/L Normal 4 20 - [address] [facility] Trigl SerPl-mCnc 135.0 mg/dL Normal 4 0 - [address] [facility] HDLc SerPl-mCnc 58.0 mg/dL Normal 4 39 - [facility] Cholest SerPl-mCnc 201.0 mg/dL Above high normal 4 100 - [address] [facility] LDLc SerPl Calc-mCnc 119.0 mg/dL Above high normal 4 0 - [address] [facility] VLDLc SerPl Calc-mCnc 24.0 mg/dL Normal 4 5 - [address] [facility] C trach DNA Ur Ql TRINO+probe No DNA Detected Normal 4 [facility] N gonorrhoea DNA Ur Ql TRINO+probe No DNA Detected Normal 4 [facility] Select one of the following tests (click on magnifying glass for more options): Chlamydia and N. gonorrhoeae Normal [facility] Prot Ur Ql Strip.auto Negative Normal 4 [facility] Bacteria #/area UrnS Auto None Seen Normal 4 [facility] RBC #/area UrnS Auto <0.0 /HPF Normal 4 - [facility] Urobilinogen Ur Strip.auto-mCnc 0.2 mg/dL Normal 4 [facility] WBC #/area UrnS Auto 1.0 /HPF Normal 4 - [facility] Bilirub Ur Ql Strip.auto Negative Normal 4 [facility] WBC # Ur Auto 6.0 /mcL Normal 4 0 - 27 [facility] Appearance Ur Clear Normal 4 [facility] Hgb Ur Ql Strip.auto Negative Normal 02 4 - [facility] Sp Gr Ur Refractometry 1.023 Normal 09/20 4 1.003 - 1.03 [facility] RBC # Ur Auto <2.0 /mcL Normal 4 0 - 27 [facility] pH Ur Strip.auto 5.0 Normal 4 4.6 - 8 [facility] Leukocyte esterase Ur Ql Strip.auto Negative Normal 4 - [facility] Hyaline Casts #/area UrnS Auto 0.0 /LPF Normal 4 0 - 3 [facility] Nitrite Ur Ql Strip.auto Negative Normal 4 [facility] Ketones Ur Ql Strip.auto Negative Normal 4 [facility] Glucose Ur Strip.auto-mCnc Negative Normal 4 [facility] Color Ur Yellow Normal 4 [facility] Squamous #/area UrnS Auto 0.0 /HPF Normal 4 [facility] The patient was informed of their right to refuse this HIV test without penalty, and the patient consented to have this test performed. The patient will be informed of the results of this test. Yes Normal 4 [facility] Chloride SerPl-sCnc 104.0 mmol/L Normal 09/20/19 2 4 96 - 109 [facility] eGFRcr SerPlBld CKD-EPI 2020 92.0 mL/min/1.73 sqm Normal 4 60 - [facility] Creat SerPl-mCnc 1.0 mg/dL Normal 4 0.6 - 1.3 [facility] BUN SerPl-mCnc 13.0 mg/dL Normal 4 7 - 22 [facility] AST/ALT SerPl-cRto 0.9 Normal 4 [facility] CO2 SerPl-sCnc 29.0 mmol/L Normal 4 21 - 31 [facility] Bilirub SerPl-mCnc 0.3 mg/dL Normal 4 - [facility] Albumin SerPl BCG-mCnc 4.3 g/dL Normal 09/20 4 3.5 - 5.3 [facility] Anion Gap SerPl-sCnc 7.0 mmol/L Normal 02 4 7 - 16 [facility] BUN/Creat SerPl 13.0 Normal 4 [facility] Prot SerPl-mCnc 6.7 g/dL Normal 4 6 - 8.2 [facility] Glucose SerPl-mCnc 86.0 mg/dL Normal 4 71 - 99 [facility] ALT SerPl w/o P-5'-P-cCnc 13.0 U/L Normal 4 - [facility] AST SerPl-cCnc 12.0 U/L Normal 4 - [facility] Potassium SerPl-sCnc 4.8 mmol/L Normal 02 4 3.5 - 5.1 [facility] Calcium SerPl-mCnc 9.3 mg/dL Normal 4 8.4 - 10.5 [facility] ALP SerPl-cCnc 79.0 U/L Normal 4 30 - 120 [facility] Sodium SerPl-sCnc 140.0 mmol/L Normal 4 135 - 148 [facility] Lipase SerPl-cCnc 34.0 U/L Normal 4 16 - 63 [facility] Hgb Bld-mCnc 15.0 g/dL Normal 4 13.9 - 16.3 [facility] MCH RBC Qn Auto 29.6 pg Normal 4 26 - 34 [facility] Hct VFr Bld Auto 44.1 % Normal 4 41 - 53 [facility] Neutrophils/leuk NFr Bld Auto 49.5 % Normal 4 40 - 70 [facility] nRBC/100 WBC Bld Manual-Rto 0.0 K/cu mm Normal 4 0 - 0.01 [facility] Basophils/leuk NFr Bld Auto 0.7 % Normal 4 0 - 2 [facility] MCHC RBC Auto-mCnc 34.0 g/dL Normal 4 31 - 37 [facility] Monocytes/leuk NFr Bld Auto 5.9 % Normal 4 2 - 11 [facility] MCV RBC Auto 87.0 fL Normal 4 80 - 100 [facility] WBC nRBC cor # Bld Auto 6.93 K/cu mm Normal 4 4.5 - 11 [facility] Platelet # Bld Auto 175.0 K/cu mm Normal 02 4 150 - 350 [facility] Neutrophils # Bld Auto 3.43 K/cu mm Normal 09/20 4 1.5 - 7.8 [facility] Eosinophil # Bld Auto 0.42 K/cu mm Above high normal 0 4 0.12 - 0.3 [facility] Imm Granulocytes/leuk NFr Bld Auto 0.3 % Normal 4 0 - 1 [facility] RBC # Bld Auto 5.07 M/cu mm Normal 4 4.5 - 5.9 [facility] Lymphocytes/leuk NFr Bld Auto 37.5 % Normal 4 24 - 44 [facility] Imm Granulocytes # Bld Auto 0.02 K/cu mm Normal 4 0 - 0.05 [facility] Eosinophil/leuk NFr Bld Auto 6.1 % Above high normal 4 1 - 4 [facility] RDW RBC Auto-Rto 12.4 % Normal 4 11.5 - 14.5 [facility] Lymphocytes # Bld Auto 2.6 K/cu mm Normal 09/20 4 1.1 - 4.8 [facility] PMV Bld Auto 11.8 fL Normal 4 9.2 - 12.7 [facility] Monocytes # Bld Auto 0.41 K/cu mm Normal 02 4 0.1 - 1.2 [facility] Age [age] a Normal 4 [facility] SARS-CoV-2 RNA Resp Ql TRINO+probe Not detected Normal 4 [facility] Does the patient reside in a group care setting? (i.e. Fci, Homeless Senior Care, Foster Care) No Normal 4 [facility] Is the patient currently hospitalized? Yes Normal 4 [facility] Is the patient a healthcare worker? No Normal 4 [facility] Is the patient having COVID symptoms? Yes Normal 4 [facility] Is the patient in an ICU? No Normal 4 [facility] Age [age] a Normal 4 [facility] SARS-CoV-2 RNA Resp Ql TRINO+probe Not detected Normal 4 [facility] RAPID INFLUENZA B SHENA No RNA Detected Normal 4 [facility] RAPID RSV SHENA No RNA Detected Normal 4 [facility] RAPID INFLUENZA A SHENA No RNA Detected Normal 4 [facility] What is the priority of the test? STAT (scarce resource) Normal 4 [facility] Is the patient a healthcare worker? 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 (i.e. Fci, Homeless Senior Care, Foster Care) No Normal 4 [facility] Is the patient having COVID symptoms? Yes Normal 4 [facility] Is the patient in an ICU? No Normal 4 [facility] Is the patient currently hospitalized? Yes Normal 4 [facility] LAB CHEM DELTA HS-TROP-I ([facility]) 0-3 HR Normal 3 [facility] Troponin I SerPl HS-mCnc <10.0 ng/L Normal 3 - 79 [facility] LAB CHEM DELTA HS-TROP-I ([facility]) 1-3 HR Normal 3 [facility] Troponin I SerPl HS-mCnc <10.0 ng/L Normal 3 - 79 [facility] LAB CHEM DELTA HS-TROP-I ([facility]) 0-1 HR Normal 3 [facility] Benzodiaz metab Ur Ql Scn Not Detected Normal 3 [facility] Cannabinoids Ur Scn-mCnc Not Detected Normal 3 [facility] Amphetamines Ur Ql Scn Not Detected Normal 07/30 3 [facility] Coc[facility]+BZE Ur Ql Scn Unconfirmed Positive Screen Normal 3 [facility] fentaNYL Ur Ql Scn Not Detected Normal 3 [facility] Methadone Ur Ql Scn Not Detected Normal 07/30/20 2 3 [facility] Opiates Ur Ql Scn Not Detected Normal 3 [facility] Barbiturates Ur Ql Scn>200 ng/mL Not Detected Normal 3 [facility] Age [age] a Normal 3 [facility] SARS-CoV-2 RNA Resp Ql TRINO+probe Not detected Normal [facility] the [facility] having COVID symptoms? Yes Normal 3 [facility] Age 48.0 a Normal 3 [facility] SARS-CoV-2 RNA Resp Ql TRINO+probe Not detected Normal 3 [facility] RAPID INFLUENZA A SHENA No RNA Detected Normal 3 [facility] RAPID RSV SHENA No RNA Detected Normal 3 [facility] RAPID INFLUENZA B SHENA No RNA Detected Normal 3 [facility] What is the priority of the test? Urgent Normal 3 [facility] Is the patient having COVID symptoms? Yes Normal 3 [facility] Sodium SerPl-sCnc 138.0 mmol/L Normal 3 136 - 145 [facility] Albumin SerPl BCG-mCnc 4.4 g/dL Normal 07/30 3 3.5 - 5 [facility] AST SerPl-cCnc Normal 3 [facility] Bilirub SerPl-mCnc 0.9 mg/dL Normal 3 0.2 - 1.2 [facility] Creat SerPl-mCnc 0.73 mg/dL Normal 3 0.6 - 1.3 [facility] Prot SerPl-mCnc 8.4 g/dL Above high normal 02 3 6.4 - 8.2 [facility] Potassium SerPl-sCnc 4.0 mmol/L Normal 02 3 3.5 - 5.1 [facility] ALT SerPl w/o P-5'-P-cCnc 26.0 U/L Normal 3 6 - 65 [facility] Glucose SerPl-mCnc 97.0 mg/dL Normal 3 71 - 99 [facility] Calcium SerPl-mCnc 9.3 mg/dL Normal 3 8.5 - 10.1 [facility] eGFRcr SerPlBld CKD-EPI 2020 112.0 mL/min/1.73 sqm Normal 3 60 - [facility] BUN SerPl-mCnc 10.0 mg/dL Normal 3 7 - 18 [facility] Anion Gap SerPl-sCnc 7.0 mmol/L Normal 02 3 7 - 16 [facility] AST/ALT SerPl-cRto Normal 3 [facility] BUN/Creat SerPl 14.0 Normal 3 [facility] ALP SerPl-cCnc 94.0 U/L Normal 3 45 - 117 [facility] CO2 SerPl-sCnc 28.0 mmol/L Normal 3 21 - 32 [facility] Chloride SerPl-sCnc 103.0 mmol/L Normal 07/30/20 2 3 98 - 107 [facility] Platelet # Bld Auto 201.0 K/cu mm Normal 02 3 150 - 350 [facility] MCHC RBC Auto-mCnc 33.2 g/dL Normal 3 31 - 37 [facility] Imm Granulocytes # Bld Auto 0.03 K/cu mm Normal 3 0 - 0.05 [facility] nRBC/100 WBC Bld Manual-Rto 0.0 K/cu mm Normal 3 0 - 0.01 [facility] Eosinophil/leuk NFr Bld Auto 1.4 % Normal 3 1 - 4 [facility] Neutrophils/leuk NFr Bld Auto 74.5 % Above high normal 3 40 - 70 [facility] PMV Bld Auto 12.1 fL Normal 3 9.2 - 12.7 [facility] Lymphocytes # Bld Auto 1.8 K/cu mm Normal 07/30 3 1.1 - 4.8 [facility] Imm Granulocytes/leuk NFr Bld Auto 0.3 % Normal 3 0 - 1 [facility] Monocytes/leuk NFr Bld Auto 8.0 % Normal 3 2 - 11 [facility] WBC nRBC cor # Bld Auto 11.66 K/cu mm Above high normal 3 4.5 - 11 [facility] Hgb Bld-mCnc 15.5 g/dL Normal 3 13.9 - 16.3 [facility] Eosinophil # Bld Auto 0.16 K/cu mm Normal 3 0.12 - 0.3 [facility] Neutrophils # Bld Auto 8.69 K/cu mm Above high normal 3 1.5 - 7.8 [facility] MCH RBC Qn Auto 29.4 pg Normal 3 26 - 34 [facility] Lymphocytes/leuk NFr Bld Auto 15.4 % Below low normal 3 24 - 44 [facility] RBC # Bld Auto 5.28 M/cu mm Normal 3 4.5 - 5.9 [facility] Monocytes # Bld Auto 0.93 K/cu mm Normal 02 3 0.1 - 1.2 [facility] RDW RBC Auto-Rto 11.9 % Normal 3 11.5 - 14.5 [facility] Hct VFr Bld Auto 46.7 % Normal 3 41 - 53 [facility] Basophils/leuk NFr Bld Auto 0.4 % Normal 3 0 - 2 [facility] MCV RBC Auto 88.4 fL Normal 3 80 - 100 [facility] Troponin I SerPl HS-mCnc <10.0 ng/L Normal 3 - 79 [facility] History of Medication Use Medication Directions Dispensed Refills Start Date End Date Stat us naproxen (NAPROSYN) 500 mg Oral Tablet Take 1 Tablet (500 mg total) by mouth Twice daily with food for 10 days 12/16/2022 12/27/2022 completed Problems Problem Status Onset Date Problem Type Date of Resolution Source Cellulitis of right thumb active EncounterDiagnosisAct [facility] Fracture of thumb, proximal phalanx, right, closed active EncounterDiagnosisAct [facility] Fracture of phalanx of right thumb active EncounterDiagnosisAct [facility] VUM Closed nondisplaced fracture of proximal phalanx of right thumb with routine healing active 2022-12-27 ProblemAct [facility]LWVUM Assessment and Plan ID Update Date Source Alert Text [place] [facility]-[id number] 10/25/2022 [place] [facility] COVID Vaccination: This patient has received the PFR, COV-19,mRNA,LNP-S,PF,30-0.3,Biv alent vaccination on 10/25/2022 with lot number [id number] [facility]. [place] [facility]-[id number] 09/15/2021 [place] [facility] COVID Vaccination: This patient has received the PFR, COVID-19, mRNA, LNP-S, PF, 0.3mL vaccination on 09/15/2021 with lot number [id number] at [facility] ([facility]). [place] [facility]-[id number] 01/17/2021 [place] [facility] COVID Vaccination: This patient has received the JSN, COVID-19, vector-nr, rS-Ad26, PF, 0.5 mL vaccination on 01/17/2021 with lot number [id number] at [facility] [address] [place] [address]. Encounters Encounter Type Encounter Reason Primary Diagnosis Location Date Emergency Dehydration Dehydration [facility] 05/01/2025 Ambulatory Unspecified symptoms and signs involving the genitourinary system Unspecified symptoms and signs involving the genitourinary system [facility] 02/07/2025 Ambulatory Unsp symptoms and signs involving the genitourinary system Unsp symptoms and signs involving the genitourinary system [facility] 02/07/2025 Emergency Foreign body in eye, unspecified laterality, initial encounter Foreign body in eye, unspecified laterality, initial encounter [facility] 02/03/2025 Emergency Insomnia Insomnia [facility] 09/16/2024 Ambulatory Chest pain, unspecified Chest pain, unspecified [facility] 07/31/2024 Ambulatory Essential (primary) hypertension Essential (primary) hypertension [facility] 07/16/2024 Ambulatory Encounter for immunization Encounter for immunization [facility] 07/16/2024 Ambulatory 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 [facility] 06/06/2024 Ambulatory 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 [facility] 06/06/2024 Ambulatory Anal fistula Anal fistula [facility] 03/18/2024 Emergency Lower abdominal pain , unspecified Lower abdominal pain, unspecified [facility] 01/20/2024 Ambulatory Anal fistula Anal fistula [facility] 10/24/[address] [facility] 10/24/2023 Emergency Upper abdominal pain , unspecified Upper abdominal pain, unspecified [facility] 09/20/2023 Observation Cocaine use, unspecified, uncomplicated Cocaine use, unspecified, uncomplicated [facility] 07/30/2023 Ambulatory Nondisplaced fractur e of proximal phalanx of right thumb, subsequent encounter for fracture with routine healing Nondisplaced fracture of proximal phalanx of right thumb, subsequent encounter for fracture with routine healing [facility] 02/09/2023 Ambulatory Nondisplaced fra cture of proximal phalanx of right thumb, subsequent encounter for fracture with routine healing [facility] 02/09/2023 Ambulatory Fracture of unspecified phalanx of right thumb, initial encounter for closed fracture [facility] 12/27/2022 Emergency [facility] 12/16/2022 Ambulatory [facility] 12/03/2022 Ambulatory Strongyloidiasis , unspecified [facility] 10/25/[address] [facility] 10/25/2022 Emergency Constipation, unspecified [facility] 10/15/2022 Emergency Diarrhea, unspecified [facility] 09/09/2022 Ambulatory Other fatigue [facility] 04/05/[address] [facility] 04/05/2022 Ambulatory Low back pain, unspecified [facility] 09/16/[address] [facility] 09/16/2021 Ambulatory Anal fistula [facility] 09/15/2021 Ambulatory Other chest pain [facility] 09/09/[address] [facility] 09/09/2021 Emergency Other chest pain [facility] 08/12/2021 Care Team Organization Name Specialty Phone Email Start Date End Da te [facility] Care Coordination [facility] 05/07/2025 [facility] DAVID TOMLINSON Primary Care 05/01/2025 [facility] 02/03/2025 [facility] 02/03/[address] [facility] DAVID TOMLINSON Primary Care [email or web address] 09/18/2024 [facility] DAVID TOMLINSON Primary Care [email or web address] 07/16/[address] [facility] DAVID TOMLINSON Primary Care [email or web address] 06/20/2024 [facility] DAVID TOMLINSON Primary Care [email or web address] 10/24/2023 [facility] Care Coordination DAVID TOMLINSON Primary Care [email or web address] 10/08/2023 4 [facility] PCP Primary Care 3 3 [facility] Care Coordination 10/16/2022 4 [facility] DAVID TOMLINSON Primary Care [email or web address] 10/15/2022 3 [facility] Care Coordination 09/09/[address] [facility] DAVID TOMLINSON Primary Care [email or web address] 08/05/2022 [facility] VENTURA ASHER Primary Care 08/03/[address] [facility] DAVID TOMLINSON Primary Care 04/05/2022 [facility] LEIGH ANN ERNST Primary Care [email or web address] 01/15/2022 [facility] DAVID LEONGW Primary Care [email or web address] 10/19/2020 1 [facility] NO PCP) Primary Care 10/19/2020 1 [facility] NONE [phone] Primary Care 12/11/2019 02 0 [facility] TBD [phone] Primary Care 12/11/2019 12/11/19 2 0 [facility] TO TBD Primary Care 12/11/2019 0 [facility] VERIFIED NONE Primary Care 12/11/[address] [facility] (No Auditable Contacts or Assets) 03/25/2019 9
--- OUTSIDE RECORDS SUMMARY | 2025-05-18 19:52 | XMS_ITS | Encounter Summary ---
Author Organization [facility] Address [address] [place] [address] Care Team Providers Care Cathead Operator Name Role Phone Referred, Self Primary Care Provider [phone] Unknown, Provider Primary Care Provider [phone] Unknown, Provider Primary Care Provider [phone] Neema Snowden MD Primary Care Provider + Pcp), No Pcp (Pt Has No Primary Care Provider Un available Neema Snowden MD Primary Care Provider + Encounter Details Date Type Department Care Team (Late st Contact Info) Description 01/22/2016 Orders Only [facility] General Surgery [address] [facility] [address] [place] [id number] Ann Caro, MARIBELL [address] [place] [address] Pre-op testing (Primary Dx) Social History Tobacco Use Types Packs/Day Years Used Date Smoking Tobacco: Every Day Cigarettes Alcohol Use Standard Drinks/Week Comments Yes 0 (1 standard drink = 0.6 oz pur e alcohol) Sex and Gender Information Value Date Recorded Sex Assigned at Not on file Legal Sex Male 6:44 PM EST Gender Identity Not on file Sexual Orientation Not on file documented as of this encounter Plan of Treatment Not on file documented as of this encounter Visit Diagnoses Diagnosis Pre-op testing- Primary Unspecified pre-operative examination documented in this encounter Additional Health Concerns Infection Onset Date Last Indicated Resolved Time Rule out COVID-19 (Airborne and Contact with Eye Protection) 10/19/2020 10/19/2020 10/19/2020 5:52 PM EST Rule out COVID-19 (Airborne and Contact with Eye Protection) 09/09/2022 09/09/2022 09/09/2022 10:03 AM EST Rule out COVID-19 (Airborne and Contact with Eye Protection) 09/09/2022 09/09/2022 09/09/2022 12:07 PM EST Rule out COVID-19 (Airborne and Contact with Eye Protection) 07/30/2023 07/30/2023 07/30/2023 12:23 PM EST Rule out COVID-19 (Airborne and Contact with Eye Protection) 09/20/2023 09/20/2023 09/20/2023 9:50 AM EST Rule out COVID-19 (Airborne and Contact with Eye Protection) 05/01/2025 05/01/2025 05/01/2025 3:54 PM EDT documented as of this encounter Care Teams Cathead Operator Relationship Specialty Start Date End Date Referred, Self SELF REFERRED [address] [place] [id number] PCP - General 08/19/15 04/27/16 Unknown, Provider PROVIDER UNKNOWN PCP - General 04/28/16 11/10/16 Unknown, Provider PROVIDER UNKNOWN PCP - General 11/11/16 03/07/17 Neema Snowden MD [address] [place] [id number] PCP - General Family Medicine 03/08/17 08/11/21 Pcp), No Pcp (Pt Has No PT HAS NO PCP PCP - General 08/12/21 04/04/22 Neema Snowden MD [address] [place] [address] PCP - General Family Medicine 04/05/22 documented as of this encounter
--- OUTSIDE RECORDS SUMMARY | 2025-05-18 19:52 | XMS_ITS | Clinical Summary ---
Author Organization [facility] s Address [address] [place] [address] Care Team Providers Care Potato Peeler Name Role Phone Unavailable Primary Care Provider Unavailabl e Social History Tobacco Use Types Packs/Day Years Used Date Smoking Tobacco: Never Assessed Sex and Gender Information Value Date Recorded Sex Assigned at Not on file Legal Sex Male 12:36 PM EDT Gender Identity Not on file Sexual Orientation Not on file Plan of Treatment Not on file Insurance [employer]
--- OUTSIDE RECORDS SUMMARY | 2025-05-18 19:52 | XMS_ITS ---
Author Name [facility] Organization Unknown Results Test Name/Text Value Interpretation Date Range Source SARS-CoV-2 RNA Resp Ql TRINO+non-probe No RNA Detected 5 [facility] Glucose SerPl-mCnc 109.0 mg/dL Above high normal 04/18 5 71 - 99 [facility] Calcium SerPl-mCnc 8.9 mg/dL 5 8.4 - 10.5 [facility] Bilirub SerPl-mCnc 0.6 mg/dL 5 0 - 1.2 [facility] BUN/Creat SerPl 31.0 5 [facility] Anion Gap SerPl-sCnc 11.0 mmol/L 02 5 7 - 16 [facility] Prot SerPl-mCnc 7.0 g/dL 5 6 - 8.2 [facility] Sodium SerPl-sCnc 136.0 mmol/L 5 135 - 148 [facility] AST/ALT SerPl-cRto 1.5 5 [facility] CO2 SerPl-sCnc 24.0 mmol/L 5 21 - 31 [facility] ALT SerPl w/o P-5'-P-cCnc 19.0 U/L 5 - [facility] Chloride SerPl-sCnc 101.0 mmol/L 05/01/20 2 5 96 - 109 [facility] Creat SerPl-mCnc 0.87 mg/dL 5 0.6 - 1.3 [facility] Potassium SerPl-sCnc 4.0 mmol/L 02 5 3.5 - 5.1 [facility] AST SerPl-cCnc 28.0 U/L 5 - 37 [facility] ALP SerPl-cCnc 88.0 U/L 5 30 - 120 [facility] BUN SerPl-mCnc 27.0 mg/dL Above high normal 05/01/20 2 5 7 - 22 [facility] eGFRcr SerPlBld CKD-EPI 2020 105.0 mL/min/1.73 sqm 5 60 - [facility] Albumin SerPl BCG-mCnc 4.4 g/dL 05/01 5 3.5 - 5.3 [facility] CK SerPl-cCnc 546.0 U/L Above high normal 5 24 - 195 [facility] Basophils/leuk NFr Bld Auto 0.5 % 5 0 - 2 [facility] PMV Bld Auto 11.4 fL 5 9.2 - 12.7 [facility] MCHC RBC Auto-mCnc 34.5 g/dL 5 31 - 37 [facility] Monocytes # Bld Auto 0.53 K/cu mm 02 5 0.1 - 1.2 [facility] WBC nRBC cor # Bld Auto 7.64 K/cu mm 5 4.5 - 11 [facility] nRBC/100 WBC Bld Manual-Rto 0.0 K/cu mm 5 0 - 0.01 [facility] Neutrophils # Bld Auto 5.28 K/cu mm 05/01 5 1.5 - 7.8 [facility] Imm Granulocytes # Bld Auto 0.02 K/cu mm 5 0 - 0.05 [facility] Eosinophil/leuk NFr Bld Auto 0.9 % Below low normal 5 1 - 4 [facility] Platelet # Bld Auto 176.0 K/cu mm 02 5 150 - 350 [facility] Hgb Bld-mCnc 13.7 g/dL Below low normal 5 13.9 - 16.3 [facility] Lymphocytes # Bld Auto 1.7 K/cu mm 05/01 5 1.1 - 4.8 [facility] Monocytes/leuk NFr Bld Auto 6.9 % 5 2 - 11 [facility] Lymphocytes/leuk NFr Bld Auto 22.3 % Below low normal 5 24 - 44 [facility] RDW RBC Auto-Rto 12.3 % 5 11.5 - 14.5 [facility] MCH RBC Qn Auto 29.7 pg 5 26 - 34 [facility] Neutrophils/leuk NFr Bld Auto 69.1 % 5 40 - 70 [facility] Imm Granulocytes/leuk NFr Bld Auto 0.3 % 5 0 - 1 [facility] RBC # Bld Auto 4.62 M/cu mm 5 4.5 - 5.9 [facility] MCV RBC Auto 85.9 fL 5 80 - 100 [facility] Eosinophil # Bld Auto 0.07 K/cu mm Below low normal 5 0.12 - 0.3 [facility] Hct VFr Bld Auto 39.7 % Below low normal 02 5 41 - 53 [facility] rRNA Spec Ql TRINO+probe Negative 5 - [facility] T vaginalis rRNA Spec Ql TRINO+probe Negative 5 - [facility] N gonorrhoea rRNA Spec Ql TRINO+probe Negative 5 - [facility] Trichomonas vaginalis rRNA Negative 5 - [facility] Neisseria gonorrhoeae rRNA Negative 5 - [facility] Chlamydia trachomatis rRNA Negative 5 - [facility] POC LEUKOCYTE ESTERASE, URINE Negative 5 - [facility] POC NITRITE, URINE Negative 5 - [facility] POC GLUCOSE, URINE Negative 5 [facility] POC UROBILINOGEN, URINE 0.2 5 0.2 - 1 [facility] POC PH, URINE 6.0 5 4.6 - 8 [facility] POC KETONE, URINE Negative 5 [facility] POC INTERNAL QC Pass 5 [facility] POC BLOOD, URINE Negative 5 [facility] POC SPECIFIC GRAVITY, URINE 1.025 5 [facility] POC BILIRUBIN, URINE Negative 02 5 [facility] POC PROTEIN, URINE Negative 5 - [facility] POC COLOR, URINE Yellow 5 [facility] POC APPEARANCE, URINE Clear 5 [facility] LAB CHEM DELTA HS-TROP-I ([facility]) 1-3 HR 2.0 ng/L Normal 4 - [facility] CHEM DELTA [facility]-TROP-I ([facility]) 0-3 HR 2.0 ng/L Normal 4 - [facility] Troponin I SerPl HS-mCnc 12.0 ng/L Normal 4 - 79 [facility] LAB CHEM DELTA HS-TROP-I ([facility]) 0-1 HR Normal 4 [facility] Troponin I SerPl HS-mCnc <10.0 ng/L Normal 4 - 79 [facility] fentaNYL Ur Ql Scn Not Detected Normal 4 [facility] Benzodiaz metab Ur Ql Scn Not Detected Normal 4 [facility] Opiates Ur Ql Scn Not Detected Normal 4 [facility] Cannabinoids Ur Scn-mCnc Not Detected Normal 4 [facility] Cocaine+BZE Ur Ql Scn Unconfirmed Positive Screen Normal 4 [facility] Methadone Ur Ql Scn Not Detected Normal 09/17/20 2 4 [facility] Amphetamines Ur Ql Scn Not Detected Normal 09/17 4 [facility] Barbiturates Ur Ql Scn>200 ng/mL Not Detected Normal 4 [facility] TSH SerPl-aCnc 0.97 mcIU/mL Normal 4 0.36 - 3.74 [facility] Monocytes/leuk NFr Bld Auto 6.8 % Normal 4 2 - 11 [facility] Lymphocytes # Bld Auto 1.56 K/cu mm Normal 09/17 4 1.1 - 4.8 [facility] Platelet # Bld Auto 206.0 K/cu mm Normal 02 4 150 - 350 [facility] MCHC RBC Auto-mCnc 34.6 g/dL Normal 4 31 - 37 [facility] Hgb Bld-mCnc 15.0 g/dL Normal 4 13.9 - 16.3 [facility] RBC # Bld Auto 5.0 M/cu mm Normal 4 4.5 - 5.9 [facility] Monocytes # Bld Auto 0.67 K/cu mm Normal 02 4 0.1 - 1.2 [facility] Neutrophils # Bld Auto 7.41 K/cu mm Normal 09/17 4 1.5 - 7.8 [facility] Eosinophil/leuk NFr Bld Auto 1.3 % Normal 4 1 - 4 [facility] Hct VFr Bld Auto 43.4 % Normal 4 41 - 53 [facility] MCH RBC Qn Auto 30.0 pg Normal 4 26 - 34 [facility] Eosinophil # Bld Auto 0.13 K/cu mm Normal 4 0.12 - 0.3 [facility] Imm Granulocytes/leuk NFr Bld Auto 0.2 % Normal 4 0 - 1 [facility] PMV Bld Auto 11.8 fL Normal 4 9.2 - 12.7 [facility] MCV RBC Auto 86.8 fL Normal 4 80 - 100 [facility] WBC nRBC cor # Bld Auto 9.84 K/cu mm Normal 4 4.5 - 11 [facility] Lymphocytes/leuk NFr Bld Auto 15.9 % Below low normal 4 24 - 44 [facility] RDW RBC Auto-Rto 12.1 % Normal 4 11.5 - 14.5 [facility] Neutrophils/leuk NFr Bld Auto 75.3 % Above high normal 4 40 - 70 [facility] Basophils/leuk NFr Bld Auto 0.5 % Normal 4 0 - 2 [facility] Imm Granulocytes # Bld Auto 0.02 K/cu mm Normal 4 0 - 0.05 [facility] nRBC/100 WBC Bld Manual-Rto 0.0 K/cu mm Normal 4 0 - 0.01 [facility] Ethanol SerPl-mCnc <3.0 mg/dL Normal 4 - [facility] CO2 SerPl-sCnc 27.0 mmol/L Normal 4 21 - 32 [facility] ALT SerPl w/o P-5'-P-cCnc 21.0 U/L Normal 4 6 - 65 [facility] Glucose SerPl-mCnc 94.0 mg/dL Normal 4 71 - 99 [facility] Anion Gap SerPl-sCnc 5.0 mmol/L Below low normal 4 7 - 16 [facility] Potassium SerPl-sCnc 3.7 mmol/L Normal 02 4 3.5 - 5.1 [facility] BUN/Creat SerPl 16.0 Normal 4 [facility] Bilirub SerPl-mCnc 0.6 mg/dL Normal 4 0.2 - 1.2 [facility] Sodium SerPl-sCnc 138.0 mmol/L Normal 4 136 - 145 [facility] Prot SerPl-mCnc 7.9 g/dL Normal 4 6.4 - 8.2 [facility] BUN SerPl-mCnc 14.0 mg/dL Normal 4 7 - 18 [facility] Chloride SerPl-sCnc 106.0 mmol/L Normal 09/17/20 2 4 98 - 107 [facility] AST/ALT SerPl-cRto 0.6 Normal 4 [facility] Calcium SerPl-mCnc 9.7 mg/dL Normal 4 8.5 - 10.1 [facility] AST SerPl-cCnc 12.0 U/L Normal 4 3 - 37 [facility] Albumin SerPl BCG-mCnc 4.0 g/dL Normal 09/17 4 3.5 - 5 [facility] ALP SerPl-cCnc 95.0 U/L Normal 4 45 - 117 [facility] Creat SerPl-mCnc 0.86 mg/dL Normal 4 0.6 - 1.3 [facility] eGFRcr SerPlBld CKD-EPI 2020 105.0 mL/min/1.73 sqm Normal 4 60 - [facility] Troponin I SerPl HS-mCnc <10.0 ng/L Normal 4 - 79 [facility] Gamma interferon background Bld IA-aCnc 1.05 IU/mL Normal 4 [facility] Mitogen IGNF bckgrd cor Bld-aCnc >10.00 Normal 4 [facility] M TB IFN-g CD4+CD8+ bckgrnd cor Bld-aCnc 0.22 IU/mL Normal 4 [facility] M TB IFN-g CD4+ bckgrnd cor Bld-aCnc 0.74 IU/mL Normal 4 [facility] TB IFN-g Bld-Imp Negative Normal 4 - [facility] QUANTIFERON INCUBATION Incubation performed. Normal 4 [facility] Service Cmnt-Imp Comment Normal 4 [facility] Hemoglobin A1c/Hemoglobin.total 5.6 % Normal 4 4.8 [...] Above high normal 4 0 - 99 [facility] Trigl SerPl-mCnc 56.0 mg/dL Normal 4 0 - 149 [facility] VLDLc SerPl Calc-mCnc 11.0 mg/dL Normal 4 5 - 40 [facility] Cholest SerPl-mCnc 185.0 mg/dL Normal 4 100 - 199 [facility] HDLc SerPl-mCnc 62.0 mg/dL Normal 4 39 - [facility] PSA SerPl-mCnc 1.5 ng/mL Normal 4 0 - 4 [facility] PSA Free MFr SerPl 19.3 % Normal 4 [facility] PSA Free SerPl-mCnc 0.29 ng/mL Normal 07/16/20 2 4 - [facility] Glucose SerPl-mCnc 91.0 mg/dL Normal 4 70 - 99 [facility] eGFRcr SerPlBld CKD-EPI 2020 109.0 mL/min/1.73 Normal 4 59 - [facility] CO2 SerPl-sCnc 22.0 mmol/L Normal 4 20 - 29 [facility] Potassium SerPl-sCnc 4.5 mmol/L Normal 02 4 3.5 - 5.2 [facility] AST SerPl-cCnc 17.0 IU/L Normal 4 0 - 40 [facility] Bilirub SerPl-mCnc 0.3 mg/dL Normal 4 0 - 1.2 [facility] Prot SerPl-mCnc 6.8 g/dL Normal 4 6 - 8.5 [facility] ALP SerPl-cCnc 86.0 IU/L Normal 4 44 - 121 [facility] BUN SerPl-mCnc 17.0 mg/dL Normal 4 6 - 24 [facility] Creat SerPl-mCnc 0.77 mg/dL Normal 4 0.76 - 1.27 [facility] Calcium SerPl-mCnc 9.2 mg/dL Normal 4 8.7 - 10.2 [facility] Globulin Ser Calc-mCnc 2.5 g/dL Normal 07/16 4 1.5 - 4.5 [facility] BUN/Creat SerPl 22.0 Above high normal 02 4 9 - 20 [facility] ALT SerPl-cCnc 15.0 IU/L Normal 4 0 - 44 [facility] Albumin SerPl-mCnc 4.3 g/dL Normal 4 4.1 - 5.1 [facility] Chloride SerPl-sCnc 103.0 mmol/L Normal 07/16/20 2 4 96 - 106 [facility] Sodium SerPl-sCnc 140.0 mmol/L Normal 4 134 - 144 [facility] Eosinophil/leuk NFr Bld Auto 3.0 % Normal 4 - [facility] RBC # Bld Auto 4.84 x10E6/uL Normal 4 4.14 - 5.8 [facility] Platelet # Bld Auto 187.0 x10E3/uL Normal 4 150 - 450 [facility] Monocytes/leuk NFr Bld Auto 6.0 % Normal 4 - [facility] Basophils # Bld Auto 0.0 x10E3/uL Normal 02 4 0 - 0.2 [facility] Neutrophils # Bld Auto 3.6 x10E3/uL Normal 07/16 4 1.4 - 7 [facility] Basophils/leuk NFr Bld Auto 1.0 % Normal 4 - [facility] Hct VFr Bld Auto 43.6 % Normal 4 37.5 - 51 [facility] Lymphocytes # Bld Auto 2.2 x10E3/uL Normal 07/16 4 0.7 - 3.1 [facility] Neutrophils/leuk NFr Bld Auto 56.0 % Normal 4 - [facility] WBC # Bld Auto 6.4 x10E3/uL Normal 4 3.4 - 10.8 [facility] MCV RBC Auto 90.0 fL Normal 4 79 - 97 [facility] RBC Qn Auto 30.2 pg Normal 4 26.6 - 33 [facility] MCHC RBC Auto-mCnc 33.5 g/dL Normal 4 31.5 - 35.7 [facility] RDW RBC Auto-Rto 12.8 % Normal 4 11.6 - 15.4 [facility] Imm Granulocytes/leuk NFr Bld Auto 0.0 % Normal 4 - [facility] Lymphocytes/leuk NFr Bld Auto 34.0 % Normal 4 - [facility] Imm Granulocytes # Bld Auto 0.0 x10E3/uL Normal 4 0 - 0.1 [facility] Eosinophil # Bld Auto 0.2 x10E3/uL Normal 4 0 - 0.4 [facility] Monocytes # Bld Auto 0.4 x10E3/uL Normal 02 4 0.1 - 0.9 [facility] Hgb Bld-mCnc 14.6 g/dL Normal 4 13 - 17.7 [facility] HbA1c MFr Bld 5.6 % Normal 4 4.8 - 5.6 [facility] Color Ur Yellow Normal 4 - [facility] Prot Ur Ql Strip Negative Normal 4 - [facility] Nitrite Ur Ql Strip Negative Normal 06/06/20 2 4 - [facility] Appearance Ur Clear Normal 4 - [facility] Ketones Ur Ql Strip Negative Normal 06/06/20 2 4 - [facility] Hgb Ur Ql Strip Negative Normal 4 - [facility] Micro UrnS Comment Normal 4 [facility] Glucose Ur Ql Strip Negative Normal 06/06/20 2 4 - [facility] pH Ur Strip 5.5 Normal 4 5 - 7.5 [facility] Sp Gr Ur Strip 1.027 Normal 4 1.005 - 1.03 [facility] Urobilinogen Ur Strip-mCnc 0.2 mg/dL Normal 4 0.2 - 1 [facility] Leukocyte esterase Ur Ql Strip Negative Normal 4 - [facility] Bilirub Ur Ql Strip Negative Normal 06/06/20 2 4 - [facility] Observation MICNIP Normal 4 [facility] Nitrite Negative [...] LEUKOCYTE ESTERASE, URINE Negative Normal 4 - [facility] POC GLUCOSE, URINE Negative Normal 4 - [facility] POC BLOOD, URINE Negative Normal 4 - [facility] POC NITRITE, URINE Negative Normal 4 - [facility] POC COLOR, URINE Yellow Normal 4 [facility] POC PROTEIN, URINE Negative Normal 4 - [facility] POC BILIRUBIN, URINE Negative Normal 02 4 - [facility] POC KETONE, URINE Negative Normal 4 - [facility] POC UROBILINOGEN, URINE 0.2 Normal 4 0.2 - 1 [facility] POC APPEARANCE, URINE Clear Normal 4 [facility] POC PH, URINE 6.0 Normal 4 4.6 - 8 [facility] POC SPECIFIC GRAVITY, URINE >=1.030 Normal 4 1.001 - 1.035 [facility] POC QC PERFORMED? Yes Normal 4 [facility] POC GLUCOSE, FINGERSTICK 98.0 MG/DL Normal 4 71 - 99 [facility] C trach DNA Ur Ql TRINO+probe No DNA Detected Normal 4 - [facility] N gonorrhoea DNA Ur Ql TRINO+probe No DNA Detected Normal 4 - [facility] Select one of the following tests (click on magnifying glass for more options): Chlamydia and N. gonorrhoeae Normal 4 [facility] Anion Gap SerPl-sCnc 2.0 mmol/L Below low normal 4 7 - 16 [facility] Chloride SerPl-sCnc 111.0 mmol/L Above high normal 4 98 - 107 [facility] AST SerPl-cCnc 21.0 U/L Normal 4 3 - 37 [facility] Creat SerPl-mCnc 1.1 mg/dL Normal 4 0.6 - 1.3 [facility] Sodium SerPl-sCnc 142.0 mmol/L Normal 4 136 - 145 [facility] BUN SerPl-mCnc 26.0 mg/dL Above high normal 01/20/20 2 4 7 - 18 [facility] Calcium SerPl-mCnc 8.8 mg/dL Normal 4 8.5 - 10.1 [facility] Potassium SerPl-sCnc 4.4 mmol/L Normal 02 4 3.5 - 5.1 [facility] ALT SerPl w/o P-5'-P-cCnc 26.0 U/L Normal 4 6 - 65 [facility] Glucose SerPl-mCnc 112.0 mg/dL Above high normal 4 71 - 99 [facility] ALP SerPl-cCnc 79.0 U/L Normal 4 45 - 117 [facility] CO2 SerPl-sCnc 29.0 mmol/L Normal 4 21 - 32 [facility] Prot SerPl-mCnc 6.7 g/dL Normal 4 6.4 - 8.2 [facility] AST/ALT SerPl-cRto 0.8 Normal 4 [facility] GFR/BSA.pred SerPlBld [id number] 82.0 mL/min/1.73 sqm Normal 4 60 - [facility] BUN/Creat SerPl 24.0 Normal 4 [facility] Bilirub SerPl-mCnc 0.4 mg/dL Normal 4 0.2 - 1.2 [facility] Albumin SerPl BCG-mCnc 3.9 g/dL Normal 01/19 4 3.5 - 5 [facility] RBC # Ur Auto 8.0 /mcL Normal 4 0 - 27 [facility] Prot Ur Ql Strip.auto 1+ Abnormal 4 - [facility] WBC #/area UrnS Auto <0.0 /HPF Normal 02 4 - [facility] Squamous #/area UrnS Auto 0.0 /HPF Normal 4 [facility] Appearance Ur Clear Normal 4 [facility] Hyaline Casts #/area UrnS Auto 0.0 /LPF Normal 4 0 - 3 [facility] Color Ur Yellow Normal 4 [facility] Bacteria #/area UrnS Auto None Seen Normal 4 - [facility] Leukocyte esterase Ur Ql Strip.auto Negative Normal 4 - [facility] pH Ur Strip.auto 8.0 Normal 4 4.6 - 8 [facility] Hgb Ur Ql Strip.auto Negative Normal 02 4 - [facility] Sp Gr Ur Refractometry 1.037 Above high normal 4 1.003 - 1.03 [facility] Bilirub Ur Ql Strip.auto Negative Normal 4 - [facility] Ketones Ur Ql Strip.auto Trace Normal 4 - [facility] Glucose Ur Strip.auto-mCnc Negative Normal 4 - [facility] Nitrite Ur Ql Strip.auto Negative Normal 4 - [facility] RBC #/area UrnS Auto 1.0 /HPF Normal 02 4 - [facility] Urobilinogen Ur Strip.auto-mCnc 1.0 mg/dL Normal 4 - [facility] WBC # Ur Auto <2.0 /mcL Normal 4 0 - 27 [facility] Imm Granulocytes # Bld Auto 0.01 K/cu mm Normal 4 0 - 0.05 [facility] Basophils/leuk NFr Bld Auto 0.9 % Normal 4 0 - 2 [facility] Neutrophils # Bld Auto 3.95 K/cu mm Normal 01/19 4 1.5 - 7.8 [facility] Hct VFr Bld Auto 38.1 % Below low normal 02 4 41 - 53 [facility] MCV RBC Auto 86.6 fL Normal 4 80 - 100 [facility] Platelet # Bld Auto 159.0 K/cu mm Normal 02 4 150 - 350 [facility] Eosinophil/leuk NFr Bld Auto 4.4 % Above high normal 4 1 - 4 [facility] MCH RBC Qn Auto 30.2 pg Normal 4 26 - 34 [facility] Neutrophils/leuk NFr Bld Auto 53.0 % Normal 4 40 - 70 [facility] Monocytes # Bld Auto 0.57 K/cu mm Normal 02 4 0.1 - 1.2 [facility] MCHC RBC Auto-mCnc 34.9 g/dL Normal 4 31 - 37 [facility] WBC nRBC cor # Bld Auto 7.47 K/cu mm Normal 4 4.5 - 11 [facility] Lymphocytes/leuk NFr Bld Auto 34.0 % Normal 4 24 - 44 [facility] Lymphocytes # Bld Auto 2.54 K/cu mm Normal 01/19 4 1.1 - 4.8 [facility] Hgb Bld-mCnc 13.3 g/dL Below low normal 4 13.9 - 16.3 [facility] Eosinophil # Bld Auto 0.33 K/cu mm Above high normal 0 4 0.12 - 0.3 [facility] PMV Bld Auto 12.3 fL Normal 4 9.2 - 12.7 [facility] RDW RBC Auto-Rto 12.2 % Normal 4 11.5 - 14.5 [facility] RBC # Bld Auto 4.4 M/cu mm Below low normal 4 4.5 - 5.9 [facility] Imm Granulocytes/leuk NFr Bld Auto 0.1 % Normal 4 0 - 1 [facility] Monocytes/leuk NFr Bld Auto 7.6 % Normal 4 2 - 11 [facility] nRBC/100 WBC Bld Manual-Rto 0.0 K/cu mm Normal 4 0 - 0.01 [facility] Thyrotropin 2.01 uIU/mL Normal 4 0.45 - [...] 5.6 % Normal 4 4.8 - 5.6 [facility] TSH SerPl DL<=0.005 mIU/L-aCnc 2.01 uIU/mL Normal 4 0.45 - 4.5 [facility] Triglyceride 135.0 mg/dL Normal 4 0 - 149 [facility] Cholesterol.in LDL 119.0 mg/dL Above high normal 4 0 - 99 [facility] Cholesterol.in VLDL 24.0 mg/dL Normal 10/25/19 2 4 5 - 40 [facility] Cholesterol 201.0 mg/dL Above high normal 4 100 - 199 [facility] Cholesterol.in HDL 58.0 mg/dL Normal 4 39 - [facility] Glucose SerPl-mCnc 75.0 mg/dL Normal 4 70 - 99 [facility] Prot SerPl-mCnc 7.2 g/dL Normal 4 6 - 8.5 [facility] Albumin SerPl-mCnc 4.4 g/dL Normal 4 4.1 - 5.1 [facility] Sodium SerPl-sCnc 141.0 mmol/L Normal 4 134 - 144 [facility] Potassium SerPl-sCnc 4.1 mmol/L Normal 02 4 3.5 - 5.2 [facility] Bilirub SerPl-mCnc <0.2 Normal 4 0 - 1.2 [facility] Globulin Ser Calc-mCnc 2.8 g/dL Normal 10/24 4 1.5 - 4.5 [facility] Calcium SerPl-mCnc 9.4 mg/dL Normal 4 8.7 - 10.2 [facility] Creat SerPl-mCnc 0.9 mg/dL Normal 4 0.76 - 1.27 [facility] Chloride SerPl-sCnc 103.0 mmol/L Normal 10/24/19 2 4 96 - 106 [facility] BUN/Creat SerPl 17.0 Normal 4 9 - 20 [facility] BUN SerPl-mCnc 15.0 mg/dL Normal 4 6 - 24 [facility] AST SerPl-cCnc 17.0 IU/L Normal 4 0 - 40 [facility] ALP SerPl-cCnc 89.0 IU/L Normal 4 44 - 121 [facility] eGFRcr SerPlBld CKD-EPI 2020 105.0 mL/min/1.73 Normal 4 59 - [facility] Albumin/Glob SerPl 1.6 Normal 4 1.2 - 2.2 [facility] ALT SerPl-cCnc 17.0 IU/L Normal 4 0 - 44 [facility] CO2 SerPl-sCnc 22.0 mmol/L Normal 4 20 - 29 [facility] Trigl SerPl-mCnc 135.0 mg/dL Normal 4 0 - 149 [facility] HDLc SerPl-mCnc 58.0 mg/dL Normal 4 39 - [facility] Cholest SerPl-mCnc 201.0 mg/dL Above high normal 4 100 - 199 [facility] LDLc SerPl Calc-mCnc 119.0 mg/dL Above high normal 4 0 - 99 [facility] VLDLc SerPl Calc-mCnc 24.0 mg/dL Normal 4 5 - 40 [facility] C trach DNA Ur Ql TRINO+probe No DNA Detected Normal 4 [facility] N gonorrhoea DNA Ur Ql TRINO+probe No DNA Detected Normal 4 [facility] Select one of the following tests (click on magnifying glass for more options): Chlamydia and N. gonorrhoeae Normal [facility] Prot Ur Ql Strip.auto Negative Normal 4 [facility] Bacteria #/area UrnS Auto None Seen Normal 4 [facility] RBC #/area UrnS Auto <0.0 /HPF Normal 4 - [facility] Urobilinogen Ur Strip.auto-mCnc 0.2 mg/dL Normal 4 [facility] WBC #/area UrnS Auto 1.0 /HPF Normal 4 - [facility] Bilirub Ur Ql Strip.auto Negative Normal 4 [facility] WBC # Ur Auto 6.0 /mcL Normal 4 0 - 27 [facility] Appearance Ur Clear Normal 4 [facility] Hgb Ur Ql Strip.auto Negative Normal 02 4 - [facility] Sp Gr Ur Refractometry 1.023 Normal 09/20 4 1.003 - 1.03 [facility] RBC # Ur Auto <2.0 /mcL Normal 4 0 - 27 [facility] pH Ur Strip.auto 5.0 Normal 4 4.6 - 8 [facility] Leukocyte esterase Ur Ql Strip.auto Negative Normal 4 - [facility] Hyaline Casts #/area UrnS Auto 0.0 /LPF Normal 4 0 - 3 [facility] Nitrite Ur Ql Strip.auto Negative Normal 4 [facility] Ketones Ur Ql Strip.auto Negative Normal 4 [facility] Glucose Ur Strip.auto-mCnc Negative Normal 4 [facility] Color Ur Yellow Normal 4 [facility] Squamous #/area UrnS Auto 0.0 /HPF Normal 4 [facility] The patient was informed of their right to refuse this HIV test without penalty, and the patient consented to have this test performed. The patient will be informed of the results of this test. Yes Normal 4 [facility] Chloride SerPl-sCnc 104.0 mmol/L Normal 09/20/19 2 4 96 - 109 [facility] eGFRcr SerPlBld CKD-EPI 2020 92.0 mL/min/1.73 sqm Normal 4 60 - [facility] Creat SerPl-mCnc 1.0 mg/dL Normal 4 0.6 - 1.3 [facility] BUN SerPl-mCnc 13.0 mg/dL Normal 4 7 - 22 [facility] AST/ALT SerPl-cRto 0.9 Normal 4 [facility] CO2 SerPl-sCnc 29.0 mmol/L Normal 4 21 - 31 [facility] Bilirub SerPl-mCnc 0.3 mg/dL Normal 4 - [facility] Albumin SerPl BCG-mCnc 4.3 g/dL Normal 09/20 4 3.5 - 5.3 [facility] Anion Gap SerPl-sCnc 7.0 mmol/L Normal 02 4 7 - 16 [facility] BUN/Creat SerPl 13.0 Normal 4 [facility] Prot SerPl-mCnc 6.7 g/dL Normal 4 6 - 8.2 [facility] Glucose SerPl-mCnc 86.0 mg/dL Normal 4 71 - 99 [facility] ALT SerPl w/o P-5'-P-cCnc 13.0 U/L Normal 4 - [facility] AST SerPl-cCnc 12.0 U/L Normal 4 - [facility] Potassium SerPl-sCnc 4.8 mmol/L Normal 02 4 3.5 - 5.1 [facility] Calcium SerPl-mCnc 9.3 mg/dL Normal 4 8.4 - 10.5 [facility] ALP SerPl-cCnc 79.0 U/L Normal 4 30 - 120 [facility] Sodium SerPl-sCnc 140.0 mmol/L Normal 4 135 - 148 [facility] Lipase SerPl-cCnc 34.0 U/L Normal 4 16 - 63 [facility] Hgb Bld-mCnc 15.0 g/dL Normal 4 13.9 - 16.3 [facility] MCH RBC Qn Auto 29.6 pg Normal 4 26 - 34 [facility] Hct VFr Bld Auto 44.1 % Normal 4 41 - 53 [facility] Neutrophils/leuk NFr Bld Auto 49.5 % Normal 4 40 - 70 [facility] nRBC/100 WBC Bld Manual-Rto 0.0 K/cu mm Normal 4 0 - 0.01 [facility] Basophils/leuk NFr Bld Auto 0.7 % Normal 4 0 - 2 [facility] MCHC RBC Auto-mCnc 34.0 g/dL Normal 4 31 - 37 [facility] Monocytes/leuk NFr Bld Auto 5.9 % Normal 4 2 - 11 [facility] MCV RBC Auto 87.0 fL Normal 4 80 - 100 [facility] WBC nRBC cor # Bld Auto 6.93 K/cu mm Normal 4 4.5 - 11 [facility] Platelet # Bld Auto 175.0 K/cu mm Normal 02 4 150 - 350 [facility] Neutrophils # Bld Auto 3.43 K/cu mm Normal 09/20 4 1.5 - 7.8 [facility] Eosinophil # Bld Auto 0.42 K/cu mm Above high normal 0 4 0.12 - 0.3 [facility] Imm Granulocytes/leuk NFr Bld Auto 0.3 % Normal 4 0 - 1 [facility] RBC # Bld Auto 5.07 M/cu mm Normal 4 4.5 - 5.9 [facility] Lymphocytes/leuk NFr Bld Auto 37.5 % Normal 4 24 - 44 [facility] Imm Granulocytes # Bld Auto 0.02 K/cu mm Normal 4 0 - 0.05 [facility] Eosinophil/leuk NFr Bld Auto 6.1 % Above high normal 4 1 - 4 [facility] RDW RBC Auto-Rto 12.4 % Normal 4 11.5 - 14.5 [facility] Lymphocytes # Bld Auto 2.6 K/cu mm Normal 09/20 4 1.1 - 4.8 [facility] PMV Bld Auto 11.8 fL Normal 4 9.2 - 12.7 [facility] Monocytes # Bld Auto 0.41 K/cu mm Normal 02 4 0.1 - 1.2 [facility] Age [age] a Normal 4 [facility] SARS-CoV-2 RNA Resp Ql TRINO+probe Not detected Normal 4 [facility] Does the patient reside in a group care setting? (i.e. Fpc, Homeless Prison, Foster Care) No Normal 4 [facility] Is the patient currently hospitalized? Yes Normal 4 [facility] Is the patient a healthcare worker? No Normal 4 [facility] Is the patient having COVID symptoms? Yes Normal 4 [facility] Is the patient in an ICU? No Normal 4 [facility] Age [age] a Normal 4 [facility] SARS-CoV-2 RNA Resp Ql TRINO+probe Not detected Normal 4 [facility] RAPID INFLUENZA B SHENA No RNA Detected Normal 4 [facility] RAPID RSV SHENA No RNA Detected Normal 4 [facility] RAPID INFLUENZA A SHENA No RNA Detected Normal 4 [facility] What is the priority of the test? STAT (scarce resource) Normal 4 [facility] Is the patient a healthcare worker? 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 (i.e. Fpc, Homeless Prison, Foster Care) No Normal 4 [facility] Is the patient having COVID symptoms? Yes Normal 4 [facility] Is the patient in an ICU? No Normal 4 [facility] Is the patient currently hospitalized? Yes Normal 4 [facility] LAB CHEM DELTA HS-TROP-I ([facility]) 0-3 HR Normal 3 [facility] Troponin I SerPl HS-mCnc <10.0 ng/L Normal 3 - 79 [facility] LAB CHEM DELTA HS-TROP-I ([facility]) 1-3 HR Normal 3 [facility] Troponin I SerPl HS-mCnc <10.0 ng/L Normal 3 - 79 [facility] LAB CHEM DELTA HS-TROP-I ([facility]) 0-1 HR Normal 3 [facility] Benzodiaz metab Ur Ql Scn Not Detected Normal 3 [facility] Cannabinoids Ur Scn-mCnc Not Detected Normal 3 [facility] Amphetamines Ur Ql Scn Not Detected Normal 07/30 3 [facility] Cocaine+BZE Ur Ql Scn Unconfirmed Positive Screen Normal 3 [facility] fentaNYL Ur Ql Scn Not Detected Normal 3 [facility] Methadone Ur Ql Scn Not Detected Normal 07/30/20 2 3 [facility] Opiates Ur Ql Scn Not Detected Normal 3 [facility] Barbiturates Ur Ql Scn>200 ng/mL Not Detected Normal 3 [facility] Age [age] a Normal 3 [facility] SARS-CoV-2 RNA Resp Ql TRINO+probe Not detected Normal 3 [facility] Is the patient having COVID symptoms? Yes Normal 3 [facility] Age 48.0 a Normal 3 [facility] SARS-CoV-2 RNA Resp Ql TRINO+probe Not detected Normal 3 [facility] RAPID INFLUENZA A SHENA No RNA Detected Normal 3 [facility] RAPID RSV SHENA No RNA Detected Normal 3 [facility] RAPID INFLUENZA B SHENA No RNA Detected Normal 3 [facility] What is the priority of the test? Urgent Normal 3 [facility] Is the patient having COVID symptoms? Yes Normal 3 [facility] Sodium SerPl-sCnc 138.0 mmol/L Normal 3 136 - 145 [facility] Albumin SerPl BCG-mCnc 4.4 g/dL Normal 07/30 3 3.5 - 5 [facility] AST SerPl-cCnc Normal 3 [facility] Bilirub SerPl-mCnc 0.9 mg/dL Normal 3 0.2 - 1.2 [facility] Creat SerPl-mCnc 0.73 mg/dL Normal 3 0.6 - 1.3 [facility] Prot SerPl-mCnc 8.4 g/dL Above high normal 02 3 6.4 - 8.2 [facility] Potassium SerPl-sCnc 4.0 mmol/L Normal 02 3 3.5 - 5.1 [facility] ALT SerPl w/o P-5'-P-cCnc 26.0 U/L Normal 3 6 - 65 [facility] Glucose SerPl-mCnc 97.0 mg/dL Normal 3 71 - 99 [facility] Calcium SerPl-mCnc 9.3 mg/dL Normal 3 8.5 - 10.1 [facility] eGFRcr SerPlBld CKD-EPI 2020 112.0 mL/min/1.73 sqm Normal 3 60 - [facility] BUN SerPl-mCnc 10.0 mg/dL Normal 3 7 - 18 [facility] Anion Gap SerPl-sCnc 7.0 mmol/L Normal 02 3 7 - 16 [facility] AST/ALT SerPl-cRto Normal 3 [facility] BUN/Creat SerPl 14.0 Normal 3 [facility] ALP SerPl-cCnc 94.0 U/L Normal 3 45 - 117 [facility] CO2 SerPl-sCnc 28.0 mmol/L Normal 3 21 - 32 [facility] Chloride SerPl-sCnc 103.0 mmol/L Normal 07/30/20 2 3 98 - 107 [facility] Platelet # Bld Auto 201.0 K/cu mm Normal 02 3 150 - 350 [facility] MCHC RBC Auto-mCnc 33.2 g/dL Normal 3 31 - 37 [facility] Imm Granulocytes # Bld Auto 0.03 K/cu mm Normal 3 0 - 0.05 [facility] nRBC/100 WBC Bld Manual-Rto 0.0 K/cu mm Normal 3 0 - 0.01 [facility] Eosinophil/leuk NFr Bld Auto 1.4 % Normal 3 1 - 4 [facility] Neutrophils/leuk NFr Bld Auto 74.5 % Above high normal 3 40 - 70 [facility] PMV Bld Auto 12.1 fL Normal 3 9.2 - 12.7 [facility] Lymphocytes # Bld Auto 1.8 K/cu mm Normal 07/30 3 1.1 - 4.8 [facility] Imm Granulocytes/leuk NFr Bld Auto 0.3 % Normal 3 0 - 1 [facility] Monocytes/leuk NFr Bld Auto 8.0 % Normal 3 2 - 11 [facility] WBC nRBC cor # Bld Auto 11.66 K/cu mm Above high normal 3 4.5 - 11 [facility] Hgb Bld-mCnc 15.5 g/dL Normal 3 13.9 - 16.3 [facility] Eosinophil # Bld Auto 0.16 K/cu mm Normal 3 0.12 - 0.3 [facility] Neutrophils # Bld Auto 8.69 K/cu mm Above high normal 3 1.5 - 7.8 [facility] MCH RBC Qn Auto 29.4 pg Normal 3 26 - 34 [facility] Lymphocytes/leuk NFr Bld Auto 15.4 % Below low normal 3 24 - 44 [facility] RBC # Bld Auto 5.28 M/cu mm Normal 3 4.5 - 5.9 [facility] Monocytes # Bld Auto 0.93 K/cu mm Normal 02 3 0.1 - 1.2 [facility] RDW RBC Auto-Rto 11.9 % Normal 3 11.5 - 14.5 [facility] Hct VFr Bld Auto 46.7 % Normal 3 41 - 53 [facility] Basophils/leuk NFr Bld Auto 0.4 % Normal 3 0 - 2 [facility] MCV RBC Auto 88.4 fL Normal 3 80 - 100 [facility] Troponin I SerPl HS-mCnc <10.0 ng/L Normal 3 - 79 [facility] History of Medication Use Medication Directions Dispensed [...] Plan ID Update Date Source Alert Text [place] [facility]-[id number] 10/25/2022 [place] [facility] COVID Vaccination: This patient has received the PFR, COV-19,mRNA,LNP-S,PF,30-0.3,Biv alent vaccination on 10/25/2022 with lot number [id number] at [facility] at [facility]. [place] [facility]-[id number] 09/15/2021 [place] [facility] COVID Vaccination: This patient has received the PFR, COVID-19, mRNA, LNP-S, PF, 0.3mL vaccination on 09/15/2021 with lot number [id number] at [facility] ([facility] [place] [facility]-[id number] 01/17/2021 [place] [facility] COVID Vaccination: This patient has received the JSN, COVID-19, vector-nr, rS-Ad26, PF, 0.5 mL vaccination on 01/17/2021 with lot number [id number] at [facility] [address] [place] [address]. Encounters Encounter Type Encounter Reason Primary Diagnosis Location Date Emergency Dehydration Dehydration [facility] 05/01/2025 Ambulatory Unspecified symptoms and signs involving the genitourinary system Unspecified symptoms and signs involving the genitourinary system [facility] 02/07/2025 Ambulatory Unsp symptoms and signs involving the genitourinary system Unsp symptoms and signs involving the genitourinary system [facility] 02/07/2025 Emergency Foreign body in eye, unspecified laterality, initial encounter Foreign body in eye, unspecified laterality, initial encounter [facility] 02/03/2025 Emergency Insomnia Insomnia [facility] 09/16/2024 Ambulatory Chest pain, unspecified Chest pain, unspecified [facility] 07/31/2024 Ambulatory Essential (primary) hypertension Essential (primary) hypertension [facility] 07/16/2024 Ambulatory Encounter for immunization Encounter for immunization [facility] 07/16/2024 Ambulatory Atherosclerotic hear t disease of [place] coronary artery without angina pectoris Atherosclerotic heart disease of [place] coronary artery without angina pectoris [facility] 06/06/2024 Ambulatory 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 [facility] 06/06/2024 Ambulatory Anal fistula Anal fistula [facility] 03/18/2024 Emergency Lower abdominal pain , unspecified Lower abdominal pain, unspecified [facility] 01/20/2024 Ambulatory Anal fistula Anal fistula [facility] 10/24/2023 Ambulatory [facility] 10/24/2023 Emergency Upper abdominal pain , unspecified Upper abdominal pain, unspecified [facility] 09/20/2023 Observation Cocaine use, unspecified, uncomplicated Cocaine use, unspecified, uncomplicated [facility] 07/30/2023 Ambulatory Nondisplaced fractur e of proximal phalanx of right thumb, subsequent encounter for fracture with routine healing Nondisplaced fracture of proximal phalanx of right thumb, subsequent encounter for fracture with routine healing [facility] 02/09/2023 Ambulatory Nondisplaced fra cture of proximal phalanx of right thumb, subsequent encounter for fracture with routine healing [facility] 02/09/2023 Ambulatory Fracture of unspecified phalanx of right thumb, initial encounter for closed fracture [facility] 12/27/2022 Emergency [facility] 12/16/2022 Ambulatory [facility] 12/03/2022 Ambulatory Strongyloidiasis , unspecified [facility] 10/25/2022 Ambulatory [facility] 10/25/2022 Emergency Constipation, unspecified [facility] 10/15/2022 Emergency Diarrhea, unspecified [facility] 09/09/2022 Ambulatory Other fatigue [facility] 04/05/2022 Ambulatory [facility] 04/05/2022 Ambulatory Low back pain, unspecified [facility] 09/16/2021 Ambulatory [facility] 09/16/2021 Ambulatory Anal fistula [facility] 09/15/2021 Ambulatory Other chest pain [facility] 09/09/2021 Ambulatory [facility] 09/09/2021 Emergency Other chest pain [facility] 08/12/2021 Care Team Organization Name Specialty Phone Email Start Date End Da te [facility] Care Coordination [facility] 05/07/2025 [facility] DAVID TOMLINSON Primary Care 05/01/2025 [facility] 02/03/2025 [facility] 02/03/2025 [facility] DAVID TOMLINSON Primary Care [email or web address] 09/18/2024 [facility] DAVID TOMLINSON Primary Care [email or web address] 07/16/2024 [facility] DAVID TOMLINSON Primary Care [email or web address] 06/20/2024 [facility] DAVID TOMLINSON Primary Care [email or web address] 10/24/2023 [facility] Care Coordination DAVID TOMLINSON Primary Care [email or web address] 10/08/2023 4 [facility] PCP Primary Care 3 3 [facility] Care Coordination 10/16/2022 4 [facility] DAVID TOMLINSON Primary Care [email or web address] 10/15/2022 3 [facility] Care Coordination 09/09/2022 [facility] DAVID TOMLINSON Primary Care [email or web address] 08/05/2022 [facility] VENTURA ASHER Primary Care 08/03/2022 4 [facility] DAVID TOMLINSON Primary Care 04/05/2022 [facility] LEIGH ANN ERNST Primary Care [email or web address] 01/15/2022 [facility] DAVID LEONGW Primary Care [email or web address] 10/19/2020 1 [facility] NO PCP) Primary Care 10/19/2020 1 [facility] NONE [id number] Primary Care 12/11/2019 02 0 [facility] TBD [id number] Primary Care 12/11/2019 12/11/19 2 0 [facility] TO TBD Primary Care 12/11/2019 0 [facility] VERIFIED NONE Primary Care 12/11/2019 0 [facility] (No Auditable Contacts or Assets) 03/25/2019 9
--- OUTSIDE RECORDS SUMMARY | 2025-05-18 19:52 | XMS_ITS | Clinical Summary ---
Author Organization [facility] Address [address] [place] [address] Care Team Providers Care Textile Machine Operator Name Role Phone Neema Snowden MD Primary Care Provider + Allergies No known active allergies Medications sennosides (SENOKOT) 8.6 mg tablet Take 2 tablets by mouth 2 (two) times daily. take with eight ounces of water 20 tablet 3 Active polyethylene glycol (MIRALAX) powder Take 17 g by mouth daily. 507 g 3 Active ibuprofen (ADVIL) 600 MG tablet Take 1 tablet (600 mg total) by mouth 3 (three) times daily as needed for Pain. 21 tablet 4 Active atorvastatin (LIPITOR) 10 MG tabletIndications :Coronary artery disease due to lipid rich plaque Take 1 tablet (10 mg total) by mouth daily. 30 tablet 11 4 Active amLODIPine (NORVASC) 10 mg tabletIndications :Primary hypertension Take 1 tablet (10 mg total) by mouth daily. 30 tablet 11 4 Active tamsulosin (FLOMAX) 0.4 mg Cap 24 hr capsuleIndication s:Lower urinary tract symptoms (LUTS) Take 1 capsule (0.4 mg total) by mouth daily. 30 capsule 1 5 Active Active Problems Problem Noted Date Diagnosed Date Primary hypertension 07/16/2024 Coronary artery disease due to lipid rich plaque 07/16/2024 Anal fistula 01/06/2017 Encounters Date Type Department Care Team Description 05/01/2025 3:04 PM EDT - 05/01/2025 9:22 PM EDT Emergency [facility] Emergency Services [address] [place] [address] Discharge Disposition: Eloped 05/01/2025 Travel 02/17/2025 Results Follow-Up [facility] [address] [place] [address] Marialuisa Martinez MD from Last 3 Months Immunizations Immunization Administration Dates Next Due COVID-19, Pfizer, 12 years a nd older, Bivalent, 30mcg/0.3mL IM 10/25/2022 Influenza (Flulaval, Fluarix , Fluzone 6 months+) (Afluria 3yrs+) preservative free syringe 07/16/2024 Influenza H1N1 (Unspecified Formulation) 010 Influenza, injectable, quadr ivalent, preservative free 10/25/2022,09/17/2021 Influenza, seasonal (Injectable) 10/16/2012,11/17 PFIZER 12+ YR PURPLE CAP (mu st dilute) SARS-COV-2 (COVID-19) vaccine, mRNA, 30mcg/0.3mL dose 09/15/2021 Tdap 06/14/2016,04/19/2016,04/12/2016 influenza, injectable, quadr ivalent, contains preservative 10/24/2023 Family History Medical History Relation Name Comments No Known Problems Brother 1 No Known Problems Brother 2 No Known Problems Brother 3 No Known Problems Brother 4 No Known Problems Brother 5 No Known Problems Daughter 1 No Known Problems Daughter 2 No Known Problems Father No Known Problems Mother No Known Problems Sister 1 No Known Problems Sister 2 No Known Problems Sister 3 Relation Name Status Comments Brother 1 Alive Brother 2 Alive Brother 3 Alive Brother 4 Alive Brother 5 Alive Daughter 1 Alive Daughter 2 Alive Father (Age 42) accident a t work Mother Alive Sister 1 Alive Sister 2 Alive Sister 3 Alive Social History Tobacco Use Types Packs/Day Years Used Date Smoking Tobacco: Former Cigarettes 0.5 15 0 01/16/2002 - 01/16/2017 Smokeless Tobacco: Never Tobacco Cessation:Counseling Given: Not Answered Alcohol Use Standard Drinks/Week Comments No 5 (1 standard drink = 0.6 oz pure alcohol) occasionally (pt drinks 4-5 beers on weekends only) AUDIT-C Answer Date Recorded Q1: How often do you have a drink containing alcohol? Never 01/21/2024 Q2: How many drinks containi ng alcohol do you have on a typical day when you are drinking? Patient does not drink Q3: How often do you have si x or more drinks on one occasion? Never 01/21/2024 PHQ-2 Answer Date Recorded PHQ-2 Total Score 0 02/07/2025 Interpersonal Violence Answer Date Lalo rded Patient afraid of, threatene d, hurt, or sexually abused by someone known to him/her No 03/18/2024 Sex and Gender Information Value Date Recorded Sex Assigned at Not on file Legal Sex Male 6:44 PM EST Gender Identity Not on file Sexual Orientation Not on file Last Filed Vital Signs Vital Sign Reading Time Taken Comments Blood Pressure 139/90 05/01/2025 6:32 PM EDT Pulse 68 05/01/2025 6:32 PM EDT Temperature 36.7 C (98.1 F) 05/01/2025 6:32 PM EDT Respiratory Rate 18 05/01/2025 6:32 PM EDT Oxygen Saturation 100% 05/01/2025 6:32 PM EDT Inhaled Oxygen Concentration - - Weight 82.1 kg (181 lb) 02/07/2025 3:19 PM EDT Height 172.7 cm (5' 8 ) 07/16/2024 1:55 PM EDT Body Mass Index 27.52 07/16/2024 1:55 PM EDT Plan of Treatment Health Maintenance Due Date Last Done Comments COLOGUARD [address] COLONOGRAPHY 1974 SIGMOIDOSCOPY 1974 HEPATITIS B VACCINES (1 of 3 - 19+ 3-dose series) 1993 PNEUMOCOCCAL VACCINES AGE 50+ (1 of 2 - PCV) 1993 COLORECTAL CANCER SCREENING 01/01/2014 FECAL OCCULT BLOOD TESTING 01/01/2014 01/01/2013 SHINGLES VACCINATION (Shingrix) (1 of 2) 2024 COVID-19 VACCINE ( season) 2024 10/25/2022, 09/15/2021, 01/17/2021 INFLUENZA VACCINE (#1) 2025 , 10/24/2023, 10/25/2022, Additional history exists DTAP/TDAP/TD VACCINES (4 - Td or Tdap) 06/14/2026 06/14/2016, 04/19/2016, 04/12/2016 HIGH RISK DIABETIC SCREENING 05/01/2028, 09/16/2024, 07/16/2024, Additional history exists HIV SCREEN Completed 09/20/2023, 08/19, 04/21/2018 DEPRESSION SCREENING Completed 02/07/2025, 10/24/19 24 HEPATITIS A VACCINES Aged Out No long er eligible based on patient's age to complete this topic Procedures Procedure Name Priority Date/Time Associated Diagnosis Comments CHEMISTRY BLOOD INDICES Routine 05/01/2025 3:10 PM EDT CBC WITH DIFFERENTIAL STAT 05/01/2025 3:10 PM EDT CREATINE KINASE (CK) STAT 05/01/2025 3:10 PM EDT COMPREHENSIVE METABOLIC PANEL STAT 05/01/2025 3:10 PM EDT COMPLETE BLOOD COUNT (CBC) + AUTO DIFF STAT 05/01/2025 3:10 PM EDT SARS COV-2 SHENA, DOCUMENT CONTROL SPECIALIST SWAB, SYMPTOMATIC Routine 05/01/2025 3:10 PM EDT HIV 1/2 ANTIBODY SCREEN W/RFX TO CONF. Routine 09/20/2023 10:41 AM EST POCT - MANUAL FECAL OCCULT BLOOD, GUAIAC Routine 01/01/2013 2:55 PM EDT Blood in stool from Last 3 Months or Most Recently Relevant to Health Maintenance Results * (ABNORMAL) CBC With Differential (05/01/2025 3:10 PM EDT) White Blood Cell Count 7.64 4.50 - 11.00 K/cu mm 05/01/2025 3:22 PM EDT [facility] Red Blood Cell Count 4.62 4.50 - 5.90 M/cu mm 05/01/2025 3:22 PM EDT [facility] Hemoglobin 13.7(L) 13.9 - 16.3 g/dL 05/01/2025 3:22 PM EDT [facility] Hematocrit 39.7(L) 41.0 - 53.0 % 05/01/2025 3:22 PM EDT [facility] Mean Corpuscular Volume 85.9 80.0 - 100.0 fL 05/01/2025 3:22 PM EDT [facility] Mean Corpus Hgb 29.7 26.0 - 34.0 pg 05/01/2025 3:22 PM EDT [facility] Mean Corpus Hgb Conc 34.5 31.0 - 37.0 g/dL 05/01/2025 3:22 PM EDT [facility] RBC Distribution Width 12.3 11.5 - 14.5 % 05/01/2025 3:22 PM EDT [facility] Platelet Count 176 150 - 350 K/cu mm 05/01/2025 3:22 PM EDT [facility] Mean Platelet Volume 11.4 9.2 - 12.7 fL 05/01/2025 3:22 PM EDT [facility] Nucleated RBC Number 0.00 0.00 - 0.01 K/cu mm 05/01/2025 3:22 PM EDT [facility] Neutrophil % 69.1 40.0 - 70.0 % 05/01/2025 3:22 PM EDT [facility] Lymphocytes % 22.3(L) 24.0 - 44.0 % 05/01/2025 3:22 PM EDT [facility] Monocyte % 6.9 2.0 - 11.0 % 05/01/2025 3:22 PM EDT [facility] Eosinophil % 0.9(L) 1.0 - 4.0 % 05/01/2025 3:22 PM EDT [facility] Basophil % 0.5 0.0 - 2.0 % 05/01/2025 3:22 PM EDT [facility] Immature Gran % 0.3 0.0 - 1.0 % 05/01/2025 3:22 PM EDT [facility] Comment:Immature Grans = Pro myelocytes + Myleocytes + Metamyelocytes ANC-Neutrophil Absolute 5.28 1.50 - 7.80 K/cu mm 05/01/2025 3:22 PM EDT [facility] Lymphocytes Absolute 1.70 1.10 - 4.80 K/cu mm 05/01/2025 3:22 PM EDT [facility] Monocyte Absolute 0.53 0.10 - 1.20 K/cu mm 05/01/2025 3:22 PM EDT [facility] Eosinophil Absolute 0.07(L) 0.12 - 0.30 K/cu mm 05/01/2025 3:22 PM EDT [facility] Immature Granulocytes Abs 0.02 0.00 - 0.05 K/cu mm 05/01/2025 3:22 PM EDT [facility] Comment:Immature Grans = Pro myelocytes + Myleocytes + Metamyelocytes Blood (Blood, peripheral) Venipuncture / Unknown 05/01/2025 3:10 PM EDT 05/01/2025 3:16 PM EDT us Ann James PA-C GENERAL LAB - LAB A DD ONLY Final Result Performing Organization Address City/[facility]/ZIP Co de Phone Number [facility] [address] [place] [address].,[address] [place] [address] * Chemistry Blood Indices (05/01/2025 3:10 PM EDT) Blood (Blood, peripheral) Venipuncture / Unknown 05/01/2025 3:10 PM EDT 05/01/2025 3:16 PM EDT us Ann James PA-C GENERAL LAB - WORKF LOW STEPS Final Result [facility] [address] [facility] [place] [address] * SARS-CoV-2 SHENA (05/01/2025 3:10 PM EDT) SARS-COV-2 No RNA Detected - 05/01/2025 3:54 PM EDT [facility] Comment: No SARS-CoV-2 RNA detected by PCR. The Xpert Xpress CoV-2 plus assay is designed to detect unique sequences in the nucleocapsid (N), envelope (E), and RNA-dependent RNA polymerase (RdRP) genes of SARS-CoV-2 genome. A No RNA Detected result does not preclude the possibility of COVID-19 infection since the adequacy of sample collection and/or low viral burden may result in the presence of viral nucleic acids below the analytical sensitivity of this test method. Test results should be used along with other clinical and laboratory data in making the diagnosis. This test has received FDA Emergency Use Authorization and has been verified by the [facility] Microbiology laboratory. This test is only authorized for the duration of the declaration and the circumstances that exist to justify the authorization of the emergency use of in vitro diagnostic tests for the detection of SARS-CoV-2 virus and/or diagnosis of COVID-19 infection under section 564(b)(1) of the Act, 21 U.S.C. 360bbb-3(b)(1), unless the authorization is terminated or revoked sooner. The [facility] laboratory is certified under CLIA-88 as qualified to perform high complexity testing. This testing was performed in the [facility] laboratory located at [address] [place] [address] (CLIA License Number: [id number] CAP number: [id number] and [facility] license number [id number]). Additional information about testing can be found on the Medical Microbiology page of the [facility] Medicine Pathology website. Copy and paste this link for direct access to this page: [email or web address] Patient results disclosed to [facility] and/or [facility] at the time and date of result verification. Respiratory (Respiratory, Nasal Swab) 05/01/2025 3:10 PM EDT 05/01/2025 3:16 PM EDT us Austen Mackey Jr., DO MICROBIOLOGY - NO N-CULTURES Final Result Performing Organization Address [facility] Co de Phone Number [facility] [address] [place] [address],[address] [place] [address] * (ABNORMAL) Creatine Kinase (CK) (05/01/2025 3:10 PM EDT) Pathologist [facility] CK, Total, Serum 546(H) 24 - 195 U/L 05/01/2025 3:42 PM EDT [facility] Blood (Blood, peripheral) Venipuncture / Unknown 05/01/2025 3:10 PM EDT 05/01/2025 3:16 PM EDT us Ann James PA-C GENERAL LAB - ROUTI NE/STAT Final Result Performing Organization Address [facility] Co de Phone Number [facility] [address] [place] [address],[address] [place] [phone] * (ABNORMAL) Comprehensive metabolic panel (05/01/2025 3:10 PM EDT) [facility] Sodium 136 135 - 148 mmol/L 05/01/2025 3:42 PM EDT [facility] Potassium 4.0 3.5 - 5.1 mmol/L 05/01/2025 3:42 PM EDT [facility] Chloride 101 96 - 109 mmol/L 05/01/2025 3:42 PM EDT [facility] Carbon Dioxide 24 21 - 31 mmol/L 05/01/2025 3:42 PM EDT [facility] Urea Nitrogen 27(H) 7 - 22 mg/dL 05/01/2025 3:42 PM EDT [facility] Creatinine 0.87 0.60 - 1.30 mg/dL 05/01/2025 3:42 PM EDT [facility] Glucose 109(H) 71 - 99 mg/dL 05/01/2025 3:42 PM EDT [facility] Calcium 8.9 8.4 - 10.5 mg/dL 05/01/2025 3:42 PM EDT [facility] Total Protein 7.0 6.0 - 8.2 g/dL 05/01/2025 3:42 PM EDT [facility] Albumin 4.4 3.5 - 5.3 g/dL 05/01/2025 3:42 PM EDT [facility] Bilirubin,Total 0.6 0.0 - 1.2 mg/dL 05/01/2025 3:42 PM EDT [facility] Alkaline Phosphatase 88 30 - 120 U/L 05/01/2025 3:42 PM EDT [facility] Aspartate Amino Trans 28 <37 U/L 05/01/2025 3:42 PM EDT [facility] Alanine Amino Trans 19 <=40 U/L 05/01/2025 3:42 PM EDT [facility] Anion Gap 11 7 - 16 mmol/L 05/01/2025 3:42 PM EDT [facility] BUN / Creatinine Ratio 31 05/01/2025 3:42 PM EDT [facility] AST/ALT Ratio 1.5 05/01/2025 3:42 PM EDT [facility] eGFR -CKD-EPI Creatinine (2020) 105 >60 mL/min/1.7 3 sqm 05/01/2025 3:42 PM EDT [facility] Blood (Blood, peripheral) Venipuncture / Unknown 05/01/2025 3:10 PM EDT 05/01/2025 3:16 PM EDT us Ann James PA-C GENERAL LAB - ROUTI NE/STAT Final Result [facility] [address] [place] [address].,[address] [place] [phone] * HIV 1/2 Antibody Screen w/ Rfx to Conf. (09/20/2023 10:41 AM EST) [facility] HIV-1/2 Ag/Ab Summary Non-Reacti ve Non-Reacti ve 09/20/2023 11:43 AM EST [facility] Comment: HIV-1 antigen and HIV-1/HIV-2 antibodies were not detected. No laboratory evidence of HIV infection. HIV-1/2 Ag/Ab Screen Non-Reacti ve Non-Reacti ve 09/20/2023 11:43 AM EST [facility] Comment: Test performed with the [employer] Ele[employer]ys HIV DUO immunoassay for HIV-1/2 antibodies and HIV-1 antigen. Blood (Blood, peripheral) Venipuncture / Unknown 09/20/2023 10:41 AM EST 09/20/2023 10:51 AM EST Chu Walls PA-C GENERAL LAB - ROUTINE Final Result [facility] [address] [place] [phone] * (ABNORMAL) POCT Fecal Occult Blood (01/01/2013 2:55 PM EDT) [facility] POC Fecal Occult Blood Positive Negative POC [facility] POC QC Performed? Yes POC [facility] Joint, Hip 01/01/2013 2:55 PM EDT us Hilda WHTIEHEAD POINT OF CARE TEST ORDERABLE S Final Result POC [facility] [address] [facility] [address] from Last 3 Months or Most Recently Relevant to Health Maintenance Care Teams Textile Machine Operator Relationship Specialty Start Date End Date Neema Snowden MD [address] [place] [address] PCP - General Family Medicine 04/05/22
--- OUTSIDE RECORDS SUMMARY | 2025-05-18 19:53 | XMS_ITS | Clinical Summary ---
Author Organization [facility] ([facility]) Address [address] [place] [address] Care Team Providers Care News Gathering Technician Name Role Phone None, Verified Primary Care Provider Unavailabl e Allergies No known active allergies Medications famotidine (PEPCID) 20 MG tablet Take 20 mg by mouth 2 times daily. Active carBAMazepine (TEGRETOL) 100 MG/5ML Suspension Take 100 mg by mouth 2 times daily. Active omeprazole (PRILOSEC OTC) 20 MG tablet Take 1 tablet by mouth daily. 30 tablet 12/11/2019 Active sucralfate (CARAFATE) 1 gm/10mL suspension Take 10 mLs by mouth 4 times daily. 200 mL 12/11/2019 Active Social History Tobacco Use Types Packs/Day Years Used Date Smoking Tobacco: Former Smokeless Tobacco: Never Alcohol Use Standard Drinks/Week Comments Not Currently 0 (1 standard drink = 0.6 oz pur e alcohol) Sex and Gender Information Value Date Recorded Sex Assigned at Not on file Legal Sex Male 2:57 PM EDT Gender Identity Not on file Sexual Orientation Not on file Last Filed Vital Signs Vital Sign Reading Time Taken Comments Blood Pressure 131/76 12/11/2019 3:10 PM EDT Pulse 74 12/11/2019 3:10 PM EDT Temperature 36.7 C (98 F) 12/11/2019 3:10 PM EDT Respiratory Rate 18 12/11/2019 3:10 PM EDT Oxygen Saturation 97% 12/11/2019 3:10 PM EDT Inhaled Oxygen Concentration - - Weight 99.8 kg (220 lb) 12/11/2019 10:00 AM EDT Height - - Body Mass Index - - Plan of Treatment Health Maintenance Due Date Last Done Comments CT Colonography 1974 Colonoscopy 1974 Colorectal Cancer Screening 1974 FIT-DNA 1974 Sigmoidoscopy 1974 gFOBT--FIT 1974 Pneumococcal Vaccine: 50+ Ye ars (1 of 1 - PCV) 2024 Zoster (Shingles) (1 of 2) 2024 COVID-19 Vaccine (1 - 2023- season) 2024 Annual Alcohol and Substance Abuse Screening (SBIRT) 09/18/2024 Annual Depression Screening 09/18/2024 Flu Vaccination - Adult 04/18/2025 10/16/2012 DTaP/Tdap/Td (4 - Td or Tdap) 06/14/2026, 04/19/2016, 04/12/2016 Insurance [employer] Care Teams News Gathering Technician Relationship Specialty Start Date End Date None, [place] [address] PCP - General 12/11/19
--- OUTSIDE RECORDS SUMMARY | 2025-05-18 19:53 | XMS_ITS | Encounter Summary ---
Author Organization [facility] Address [address] [place] [address] Care Team Providers Care Subway Car Repairer Name Role Phone Neema Snowden MD Primary Care Provider + Pcp), No Pcp (Pt Has No Primary Care Provider Un available Neema Snowden MD Primary Care Provider + Encounter Details Date Type Department Care Team (Late st Contact Info) Description 12/23/2020 Orders Only [facility] [address] [place] [phone] Jase Maria MD [address] [address] Need for vaccination Social History Tobacco Use Types Packs/Day Years Used Date Smoking Tobacco: Former Cigarettes 0.5 15 0 01/16/2002 - 01/16/2017 Smokeless Tobacco: Never Alcohol Use Standard Drinks/Week Comments No 5 (1 standard drink = 0.6 oz pure alcohol) occasionally (pt drinks 4-5 beers on weekends only) Sex and Gender Information Value Date Recorded Sex Assigned at Not on file Legal Sex Male 6:44 PM EST Gender Identity Not on file Sexual Orientation Not on file documented as of this encounter Plan of Treatment Not on file documented as of this encounter Visit Diagnoses Diagnosis Need for vaccination Need for prophylactic vaccination and inoculation against unspecified single disease documented in this encounter Additional Health Concerns [...] documented as of this encounter Care Teams Subway Car Repairer Relationship Specialty Start Date End Date Neema Snodwen MD [address] [place] [address] PCP - General Family Medicine 03/08/17 08/11/21 Pcp), No Pcp (Pt Has No PT HAS NO PCP PCP - General 08/12/21 04/04/22 Neema Snowden MD [address] [place] [address] PCP - General Family Medicine 04/05/22 documented as of this encounter
--- OUTSIDE RECORDS SUMMARY | 2025-05-18 19:53 | XMS_ITS | Encounter Summary ---
Author Organization [facility] Address [address] [place], [place] [address] Care Team Providers Care Jewel Blocker And Sawyer Name Role Phone Neema Snowden MD Primary Care Provider + Encounter Details Date Type Department Care Team (Late st Contact Info) Description 03/22/2024 Orders Only Gastroenterology [address] [place] [address] Jemima Balderas RN Anal fistula (Primary Dx) Social History Tobacco Use Types [...] PHQ-2 Answer Date Recorded PHQ-2 Total Score 4 10/24/2023 Interpersonal Violence Answer Date Lalo rded Patient afraid of, threatene d, hurt, or sexually abused by someone known to him/her No 03/18/2024 Sex and Gender Information Value Date Recorded Sex Assigned at Not on file Legal Sex Male 6:44 PM EST Gender Identity Not on file Sexual Orientation Not on file COVID-19 Exposure Response Date Recorded In the last 10 days, have yo u been in contact with someone who was confirmed or suspected to have Coronavirus/COVID-19? No / Unsure 03/18/2024 6:45 AM EDT documented as of this encounter Plan of Treatment Not on file documented as of this encounter Visit Diagnoses Diagnosis Anal fistula- Primary documented in this encounter Additional Health Concerns Infection Onset Date Last Indicated Resolved Time Rule out COVID-19 (Airborne and Contact with Eye Protection) 05/01/2025 05/01/2025 05/01/2025 3:54 PM EDT documented as of this encounter Care Teams Jewel Blocker And Sawyer Relationship Specialty Start Date End Date Neema Snowden MD [address] [place] [phone] PCP - General Family Medicine 04/05/22 documented as of this encounter
[2025-05-18 21:47] VITALS: BP 184/101; PULSE 68; TEMP 36.8; O2SAT 97
--- NOTE | 2025-05-18 21:58 | ECG_ITS ---
Test Reason : HYPERTENSION Blood Pressure : */* mmHG Vent. Rate : 61 BPM Atrial Rate : 61 BPM P-R Int : 180 ms QRS Dur : 90 ms QT Int : 412 ms P-R-T Axes : 33 18 29 degrees QTcB Int : 414 ms Normal sinus rhythm with sinus arrhythmia Normal ECG No previous ECGs available Referred By: Lulu Ornelas Electronically Signed By: PONCHO ALARCON MD
[2025-05-18 22:41] LABS: B Type Natriuretic Peptide 19 pg/mL (<100)
[2025-05-18 22:42] LABS: Troponin-I High Sensitivity < 2.7 ng/L (<3.5-35.0)
[2025-05-18] MEDS: NIFEdipine ER 30 MG TAB.ER.24 PO (23:00)
[2025-05-19 01:21] VITALS: BP 151/93; PULSE 63; TEMP 36.8; O2SAT 98
[2025-05-19 02:51] VITALS: BP 145/96; PULSE 67; RESP 16; TEMP 36.6; O2SAT 98
[2025-05-19 03:10] VITALS: BP 145/96; PULSE 67; RESP 16; TEMP 36.6; O2SAT 98
== END 2025-05-19 03:10 | disposition home or self-care (01) ==
PROVIDERS: Physician Assistant Medical; Emergency Provider Emergency Medicine
DX: B34.9 Viral infection, unspecified (principal); R05.9 Cough, unspecified; I49.8 Other specified cardiac arrhythmias; M79.10 Myalgia, unspecified site; I10 Essential (primary) hypertension; Z03.818 Encounter for observation for suspected exposure to other biological agents ruled out; Z79.899 Other long term (current) drug therapy
CPT/HCPCS: 36415; 71046; 80053; 82550; 83735; 83880; 84484; 85025; 87502; 87635; 93005; 99283; 99284

== ENCOUNTER → 2025-05-18 16:47 | Outpatient (BNV) | payer BC, SELFPAY | PROVIDERS: Visit Provider Radiology Diagnostic Radiology | DX: R05.9 Cough, unspecified (principal) | CPT/HCPCS: 71046 ==

== ENCOUNTER → 2025-05-18 21:58 | Outpatient (BNV) | payer BC, SELFPAY | PROVIDERS: Emergency Provider Emergency Medicine; Visit Provider Internal Medicine Cardiovascular Disease | DX: I10 Essential (primary) hypertension (principal) | CPT/HCPCS: 93010 ==